=== PATIENT | male | born 1950 | race Caucasian/White ===

== ENCOUNTER 2017-06-27 01:44 | Inpatient (IN) | payer MEDICARE ==
[2017-06-27] MEDS: BUPIVACAINE 0.5%/EPI (SDV) 30 ML INJ
[2017-06-27] MEDS: morphine 4 MG/ML VIAL IV (03:07)
[2017-06-27] MEDS: LACTATED RINGER'S 1,000 ML IV (03:07)
[2017-06-27] MEDS ORDERED: ONDANSETRON (ODT) 4 MG TAB ODT (03:10)
[2017-06-27] MEDS: ONDANSETRON 4 MG INJ IV (03:18)
[2017-06-27 03:57] LABS: ADD MAN DIFF? NO
[2017-06-27 04:07] LABS: WHITE BLOOD COUNT 2.4 10^3/ul (4.8-10.8)
[2017-06-27 04:07] LABS: ABNORMAL IP MESSAGE 1; BASOPHILS % 0.4 % (0.0-2.0); EOSINOPHILS % 0.4 % (0.0-7.0); HEMATOCRIT 40.6 % (42.0-52.0); HEMOGLOBIN 12.2 g/dl (14.0-18.0); LYMPHOCYTES # 0.3 10^3/ul (0.8-2.9); LYMPHOCYTES % 13.6 % (15.0-51.0); MEAN CORPUSCULAR HEMOGLOBIN 22.2 pg (29.0-33.0); MEAN CORPUSCULAR VOLUME 73.8 fl (82.0-101.0); MEAN PLATELET VOLUME 8.9 fl (7.4-10.4); MONOCYTE # 0.1 10^3/ul (0.3-0.9); MONOCYTES % 2.1 % (0.0-11.0); NEUTROPHILS % 83.5 % (39.0-77.0); PLATELET COUNT 608 10^3/UL (140-415); POSITIVE DIFF @See below; RED CELL DISTRIBUTION WIDTH 19.7 % (11.5-14.5)
[2017-06-27] MEDS: HYDROmorphONE 1 MG/5 ML IV SYRINGE IV (04:17)
[2017-06-27 04:40] LABS: ALANINE AMINOTRANSFERASE 13 IU/L (13-69); ALBUMIN 3.6 g/dl (3.3-4.9); ALBUMIN/GLOBULIN RATIO 1.09; ALKALINE PHOSPHATASE 121 IU/L (42-121); ANION GAP 16 (8-16); ASPARTATE AMINO TRANSFERASE 19 IU/L (15-46); BILIRUBIN,INDIRECT 0.4 mg/dl (0-1.1); BILIRUBIN,TOTAL 0.4 mg/dl (0.2-1.3); BLOOD UREA NITROGEN 23 mg/dl (7-20); CALCIUM 8.6 mg/dl (8.4-10.2); CARBON DIOXIDE 30 mmol/L (21-31); CHLORIDE 99 mmol/L (97-110); CREATININE 0.93 mg/dl (0.61-1.24); GLUCOSE 272 mg/dl (70-220); LIPASE 50 U/L (23-300); SODIUM 143 mmol/L (135-144); TOTAL PROTEIN 6.9 g/dl (6.1-8.1)
[2017-06-27 04:47] LABS: POTASSIUM 2.4 mmol/L (3.5-5.1)
[2017-06-27] MEDS: POTASSIUM CHLORIDE 100 ML IVPB ×5 (05:09→14:28)
[2017-06-27] MEDS: PIPER-TAZO 3.375 GM IV (PMX) 100 ML IVPB ×3 (05:41→12:27)
[2017-06-27] MEDS ORDERED: ONDANSETRON 4 MG INJ IV ×2 (06:00→18:30)
[2017-06-27] MEDS ORDERED: ALBUTEROL/IPRATROPIUM (NEB) 3 ML AMP HHN (06:00)
[2017-06-27] MEDS ORDERED: NACL 0.9% 3 ML SYG IV (06:00)
[2017-06-27] MEDS ORDERED: GLUCAGON 1 MG INJ IM (06:30)
[2017-06-27] MEDS ORDERED: GLUCOSE GEL 15 GRAM TUBE PO ×2 (06:30)
[2017-06-27] MEDS ORDERED: GLUCOSE GEL 15 GRAM TUBE BUCCAL (06:30)
[2017-06-27] MEDS ORDERED: DEXTROSE 50% 50 ML SYRINGE IV (06:30)
[2017-06-27] MEDS ORDERED: ROCURONIUM 50 MG INJ ×2 (07:00→15:38)
[2017-06-27] MEDS ORDERED: ETOMIDATE 20 MG INJ (07:00)
[2017-06-27] MEDS: morphine 2 MG INJ IV (07:31)
[2017-06-27] MEDS ORDERED: HYDROmorphONE 1 MG/5 ML IV SYRINGE IV (08:00)
[2017-06-27] MEDS ORDERED: POTASSIUM CHLORIDE 50 ML ×2 (08:21→11:06)
[2017-06-27] MEDS: D5W-0.45 NACL + KCL 20 MEQ 1,000 ML IV ×3 (08:34→22:30)
[2017-06-27] MEDS: FAMOTIDINE 20 MG INJ IV (09:00)
[2017-06-27] MEDS: INSULIN ASPART [NOVOLOG] 3 ML PEN SC ×4 (09:22→21:00)
[2017-06-27 11:36] LABS: POTASSIUM 2.6 mmol/L (3.5-5.1)
[2017-06-27 11:52] LABS: INR 1.12; PROTIME 14.6 Sec (11.9-14.9); PT RATIO 1.1
[2017-06-27] MEDS ORDERED: NORepinephrine 8MG/250 ML (PMX 250 ML (12:06)
[2017-06-27] MEDS: NORepinephrine 8MG/250 ML (PMX 250 ML IV ×2 (12:28→22:00)
[2017-06-27 13:44] LABS: POTASSIUM 3.5 mmol/L (3.5-5.1)
[2017-06-27] MEDS ORDERED: LIDOCAINE 1% (MPF) 30 ML INJ (14:20)
[2017-06-27] MEDS ORDERED: MIDAZOLAM 1 MG/ML 2 ML INJ ×3 (15:10→18:05)
[2017-06-27] MEDS ORDERED: PHENYLephrine (100 MCG/ML) 5ML SYG (15:13)
[2017-06-27] MEDS ORDERED: VASOPRESSIN 20 UNITS INJ (15:22)
[2017-06-27] MEDS: FLUCONAZOLE 400 MG/NS (PMX) 200 ML IVPB (17:30)
[2017-06-27] MEDS ORDERED: LORAZEPAM 2 MG INJ IV (18:30)
[2017-06-27] MEDS ORDERED: METOCLOPRAMIDE 10 MG INJ IV (18:30)
[2017-06-27] MEDS ORDERED: FENTAnyl 50 MCG/ML VIAL IV ×3 (18:30)
[2017-06-27 19:50] LABS: WHITE BLOOD COUNT 6.8 10^3/ul (4.8-10.8)
[2017-06-27 19:50] LABS: ABNORMAL IP MESSAGE 1; HEMATOCRIT 40.7 % (42.0-52.0); HEMOGLOBIN 12.4 g/dl (14.0-18.0); MEAN CORPUSCULAR HEMOGLOBIN 22.3 pg (29.0-33.0); MEAN CORPUSCULAR HGB CONC 30.5 g/dl (32.0-37.0); MEAN CORPUSCULAR VOLUME 73.2 fl (82.0-101.0); MEAN PLATELET VOLUME 9.3 fl (7.4-10.4); PLATELET COUNT 511 10^3/UL (140-415); POSITIVE DIFF @See below; RED BLOOD COUNT 5.56 10^6/ul (4.70-6.10); RED CELL DISTRIBUTION WIDTH 19.9 % (11.5-14.5)
[2017-06-27 19:53] LABS: ADD MAN DIFF? YES
[2017-06-27] MEDS: INSULIN GLARGINE [LANtus] 3 ML PEN SC (20:00)
[2017-06-27 20:23] LABS: ALANINE AMINOTRANSFERASE 40 IU/L (13-69); ALBUMIN 1.7 g/dl (3.3-4.9); ALKALINE PHOSPHATASE 106 IU/L (42-121); ANION GAP 9 (8-16); ASPARTATE AMINO TRANSFERASE 69 IU/L (15-46); BILIRUBIN,INDIRECT 0.5 mg/dl (0-1.1); BILIRUBIN,TOTAL 0.5 mg/dl (0.2-1.3); CARBON DIOXIDE 24 mmol/L (21-31); CHLORIDE 112 mmol/L (97-110); GLUCOSE 103 mg/dl (70-220)
[2017-06-27 20:29] LABS: ANISOCYTOSIS 2+ (0-0); BAND NEUTROPHILS #M 3.1 10^3/ul (0.0-0.6); BAND NEUTROPHILS % (M) 47 % (0-4); GIANT THROMBO% (M) 5 % (0-0); HYPOCHROMASIA 1+ (0-0); LYMPHOCYTES #M 0.8 10^3/ul (0.8-2.9); LYMPHOCYTES % (M) 13 % (15-51); MICROCYTOSIS 2+ (0-0); MONOCYTES % (M) 16 % (0-11); OVALOCYTES 1+ (0-0); PLATELET ESTIMATE NORMAL; POIKILOCYTOSIS 3+ (0-0); POLYCHROMASIA 2+ (0-0); REACTIVE LYMPHOCYTES #M 0.5 10^3/ul (0.0-0.0); REACTIVE LYMPHOCYTES% (M) 8 % (0-0); SEG NEUT #M 1.3 10^3/ul (1.6-7.5); SEGMENTED NEUTROPHILS (M) % 16 % (39-77); SMUDGE%M 2 % (0-0)
[2017-06-27 20:45] LABS: POTASSIUM 4.2 mmol/L (3.5-5.1); SODIUM 141 mmol/L (135-144)
[2017-06-27 20:47] LABS: BLOOD UREA NITROGEN 25 mg/dl (7-20); CALCIUM 7.3 mg/dl (8.4-10.2); CREATININE 1.24 mg/dl (0.61-1.24); TOTAL PROTEIN 3.8 g/dl (6.1-8.1)
[2017-06-27 20:56] LABS: AADO2 Arterial 187.2 mmHg (7.0-24.0); Arterial Blood Gas Oxygen Sat 98.2 mmHG (95.0-98.0); Arterial COHb 0.4 % (0.0-3.0); Arterial Fraction of Oxyhgb 97.4 % (93.0-99.0); Arterial HCO3 17.7 mmol/L (22.0-26.0); Arterial MetHb 0.4 % (0.0-1.5); Arterial Total Hemglobin 13.6 g/dl (12.0-18.0); Arterial pCO2 37.2 mmhg (35-45); MODE VENT - AC; Site A-Line
[2017-06-27] MEDS ORDERED: PROPOFOL 100 ML (21:58)
[2017-06-27] MEDS: PROPOFOL 100 ML IV (22:00)
[2017-06-28] MEDS: INSULIN ASPART [NOVOLOG] 3 ML PEN SC ×6 (01:00→21:00)
[2017-06-28] MEDS: ACCU-CHEK XX (02:00)
[2017-06-28] MEDS: DEXTROSE 50% 50 ML SYRINGE IV (02:30)
[2017-06-28] MEDS: SOD CHLORIDE 0.9% 1,000 ML IV ×5 (02:30→09:01)
[2017-06-28] MEDS: NORepinephrine 8MG/250 ML (PMX 250 ML IV ×2 (03:29→09:12)
[2017-06-28 05:46] LABS: WHITE BLOOD COUNT 17.8 10^3/ul (4.8-10.8)
[2017-06-28 05:46] LABS: ABNORMAL IP MESSAGE 1; HEMATOCRIT 33.6 % (42.0-52.0); HEMOGLOBIN 10.4 g/dl (14.0-18.0); MEAN CORPUSCULAR HEMOGLOBIN 22.3 pg (29.0-33.0); MEAN CORPUSCULAR VOLUME 71.9 fl (82.0-101.0); PLATELET COUNT 380 10^3/UL (140-415); POSITIVE DIFF @See below; RED BLOOD COUNT 4.67 10^6/ul (4.70-6.10)
[2017-06-28 05:58] LABS: ADD MAN DIFF? YES
[2017-06-28] MEDS: PANTOPRAZOLE 40 MG INJ IV (06:00)
[2017-06-28] MEDS: ACETAMINOPHEN 1000MG/100ML IV 100 ML IVPB ×6 (06:00→23:45)
[2017-06-28] MEDS: ALBUMIN HUMAN 25% 100 ML IV ×2 (06:00→22:35)
[2017-06-28] MEDS: PIPER-TAZO 3.375 GM IV (PMX) 100 ML IVPB ×6 (06:01→23:44)
[2017-06-28 06:14] LABS: ALANINE AMINOTRANSFERASE 71 IU/L (13-69); ALBUMIN 1.6 g/dl (3.3-4.9); ALBUMIN/GLOBULIN RATIO 0.76; ALKALINE PHOSPHATASE 89 IU/L (42-121); ANION GAP 11 (8-16); ASPARTATE AMINO TRANSFERASE 127 IU/L (15-46); BILIRUBIN,INDIRECT 0.3 mg/dl (0-1.1); BILIRUBIN,TOTAL 0.3 mg/dl (0.2-1.3); BLOOD UREA NITROGEN 27 mg/dl (7-20); CALCIUM 6.6 mg/dl (8.4-10.2); CARBON DIOXIDE 19 mmol/L (21-31); CHLORIDE 116 mmol/L (97-110); CREATININE 1.63 mg/dl (0.61-1.24); GLUCOSE 98 mg/dl (70-220); IRON < 10 ug/dl (35-150); MAGNESIUM 1.5 mg/dl (1.7-2.5); PHOSPHORUS 3.8 mg/dl (2.5-4.9); POTASSIUM 4.1 mmol/L (3.5-5.1); SODIUM 142 mmol/L (135-144); TOTAL PROTEIN 3.7 g/dl (6.1-8.1)
[2017-06-28 06:19] LABS: TOTAL IRON BINDING CAPACITY 162 ug/dl (241-421)
[2017-06-28] MEDS: D5W-0.45 NACL + KCL 20 MEQ 1,000 ML IV (06:30)
[2017-06-28 07:07] LABS: HEMOGLOBIN A1C 5.2 % (0-5.9)
[2017-06-28 07:37] LABS: ANISOCYTOSIS 1+ (0-0); BAND NEUTROPHILS #M 10.6 10^3/ul (0.0-0.6); BAND NEUTROPHILS % (M) 60 % (0-4); BURR CELLS 2+ (0-0); GIANT THROMBO% (M) 7 % (0-0); LYMPHOCYTES #M 2.1 10^3/ul (0.8-2.9); LYMPHOCYTES % (M) 12 % (15-51); MICROCYTOSIS 1+ (0-0); MONOCYTE #M 0.3 10^3/ul (0.3-0.9); MONOCYTES % (M) 2 % (0-11); PLATELET ESTIMATE NORMAL; POIKILOCYTOSIS 2+ (0-0); SEG NEUT #M 6.5 10^3/ul (1.6-7.5); SEGMENTED NEUTROPHILS (M) % 26 % (39-77); SMUDGE%M 20 % (0-0)
[2017-06-28 08:27] LABS: AADO2 Arterial 107.8 mmHg (7.0-24.0); Arterial Base Excess -9.5 mmol/L (-3.0-3); Arterial Blood Gas Oxygen Sat 98.4 mmHG (95.0-98.0); Arterial COHb 0.3 % (0.0-3.0); Arterial Fraction of Oxyhgb 97.7 % (93.0-99.0); Arterial HCO3 14.7 mmol/L (22.0-26.0); Arterial MetHb 0.4 % (0.0-1.5); Arterial Total Hemglobin 10.5 g/dl (12.0-18.0); Arterial pCO2 26.9 mmhg (35-45); MODE VENT - AC; Site A-Line
[2017-06-28] MEDS: MAGNESIUM SULFATE 2 GM/50 ML 50 ML IVPB (09:01)
[2017-06-28] MEDS: FAMOTIDINE 20 MG INJ IV ×3 (09:01→22:50)
[2017-06-28] MEDS: PROPOFOL 100 ML IV ×3 (10:00→22:00)
[2017-06-28] MEDS: SODIUM BICARBONATE (IV ADD) 100 MEQ in DEXTROSE 5%-0.45% NACL 1,000 ML IV ×2 (13:30→21:48)
[2017-06-28] MEDS: FENTAnyl (DRIP) 1000 mcg/100mL 100 ML IV (16:45)
[2017-06-28] MEDS: FLUCONAZOLE 400 MG/NS (PMX) 200 ML IVPB (18:18)
[2017-06-28] MEDS: INSULIN GLARGINE [LANtus] 3 ML PEN SC (19:56)
[2017-06-28] MEDS: SOD CHLORIDE 0.9% 500 ML IV (20:50)
[2017-06-28] MEDS: FUROSEMIDE 40 MG INJ IV (22:51)
[2017-06-29] MEDS: INSULIN ASPART [NOVOLOG] 3 ML PEN SC ×6 (01:17→20:37)
[2017-06-29] MEDS: NORepinephrine 8MG/250 ML (PMX 250 ML IV ×2 (01:18→02:16)
[2017-06-29] MEDS: ACCU-CHEK XX (02:00)
[2017-06-29] MEDS: PROPOFOL 100 ML IV (03:41)
[2017-06-29] MEDS: SODIUM BICARBONATE (IV ADD) 100 MEQ in DEXTROSE 5%-0.45% NACL 1,000 ML IV (05:58)
[2017-06-29] MEDS: PANTOPRAZOLE 40 MG INJ IV (06:09)
[2017-06-29] MEDS: ACETAMINOPHEN 1000MG/100ML IV 100 ML IVPB ×4 (06:09→23:55)
[2017-06-29] MEDS: PIPER-TAZO 3.375 GM IV (PMX) 100 ML IVPB ×2 (06:09→12:41)
[2017-06-29 06:32] LABS: ABNORMAL IP MESSAGE 1; HEMATOCRIT 25.8 % (42.0-52.0); HEMOGLOBIN 8.2 g/dl (14.0-18.0); MEAN CORPUSCULAR HEMOGLOBIN 22.7 pg (29.0-33.0); MEAN CORPUSCULAR HGB CONC 31.8 g/dl (32.0-37.0); MEAN CORPUSCULAR VOLUME 71.3 fl (82.0-101.0); MEAN PLATELET VOLUME 10.9 fl (7.4-10.4); PLATELET COUNT 196 10^3/UL (140-415); POSITIVE DIFF @See below; RED BLOOD COUNT 3.62 10^6/ul (4.70-6.10); RED CELL DISTRIBUTION WIDTH 19.9 % (11.5-14.5)
[2017-06-29 06:32] LABS: WHITE BLOOD COUNT 16.2 10^3/ul (4.8-10.8)
[2017-06-29 06:33] LABS: ADD MAN DIFF? YES
[2017-06-29 06:56] LABS: URIC ACID 3.7 mg/dl (3.1-7.9)
[2017-06-29 06:56] LABS: CREATINE KINASE 313 IU/L (23-200)
[2017-06-29 06:58] LABS: ANION GAP 15 (8-16); BLOOD UREA NITROGEN 35 mg/dl (7-20); CALCIUM 6.3 mg/dl (8.4-10.2); CARBON DIOXIDE 23 mmol/L (21-31); CHLORIDE 111 mmol/L (97-110); CREATININE 1.81 mg/dl (0.61-1.24); GLUCOSE 150 mg/dl (70-220); MAGNESIUM 2.1 mg/dl (1.7-2.5); PHOSPHORUS 3.2 mg/dl (2.5-4.9); POTASSIUM 3.3 mmol/L (3.5-5.1); SODIUM 146 mmol/L (135-144)
[2017-06-29 07:43] LABS: ANISOCYTOSIS 2+ (0-0); BAND NEUTROPHILS #M 4.2 10^3/ul (0.0-0.6); BAND NEUTROPHILS % (M) 26 % (0-4); BURR CELLS 3+ (0-0); HYPOCHROMASIA 1+ (0-0); LYMPHOCYTES #M 0.4 10^3/ul (0.8-2.9); LYMPHOCYTES % (M) 3 % (15-51); METAMYELOCYTES #M 0.3 10^3/ul (0.0-0.0); METAMYELOCYTES %M 2 % (0-0); MICROCYTOSIS 2+ (0-0); MONOCYTE #M 1.4 10^3/ul (0.3-0.9); MONOCYTES % (M) 9 % (0-11); PLATELET ESTIMATE NORMAL; POIKILOCYTOSIS 3+ (0-0); POLYCHROMASIA 1+ (0-0); SEG NEUT #M 10.4 10^3/ul (1.6-7.5); SEGMENTED NEUTROPHILS (M) % 60 % (39-77); SMUDGE%M 3 % (0-0); TARGET CELLS 1+ (0-0)
[2017-06-29] MEDS: FAMOTIDINE 20 MG INJ IV ×2 (10:05→20:36)
[2017-06-29] MEDS: POTASSIUM CHLORIDE 50 ML IVPB ×2 (10:13→12:03)
[2017-06-29 11:44] LABS: AADO2 Arterial 65.9 mmHg (7.0-24.0); Allen Test ACCEPTAB; Arterial Base Excess -0.6 mmol/L (-3.0-3); Arterial COHb 0.3 % (0.0-3.0); Arterial Fraction of Oxyhgb 97.3 % (93.0-99.0); Arterial HCO3 22.3 mmol/L (22.0-26.0); Arterial MetHb 0.4 % (0.0-1.5); Arterial Total Hemglobin 9.6 g/dl (12.0-18.0); Arterial pCO2 30.4 mmhg (35-45); Blood Gas PS 10; MODE VENT - CPAP; Site Right Brachial
[2017-06-29] MEDS: SOD CHLORIDE 0.9% 1,000 ML IV (12:03)
[2017-06-29 12:25] LABS: SODIUM,URINE RANDOM 49 mmol/L (30-90)
[2017-06-29 12:29] LABS: CREATININE,URINE RANDOM 68.52 mg/dl (20-370); PROTEIN/CREAT RATIO 0.62 RATIO
[2017-06-29] MEDS: morphine 2 MG INJ IV ×2 (13:33→19:44)
[2017-06-29] MEDS: PIPER-TAZO 2.25 GM (PMX) 50 ML IVPB ×2 (17:14→23:56)
[2017-06-29] MEDS: FLUCONAZOLE 200 MG (PMX) 100 ML IVPB (18:45)
[2017-06-29] MEDS: INSULIN GLARGINE [LANtus] 3 ML PEN SC (20:00)
[2017-06-30] MEDS: INSULIN ASPART [NOVOLOG] 3 ML PEN SC ×6 (01:00→20:56)
[2017-06-30] MEDS: ACCU-CHEK XX (02:23)
[2017-06-30] MEDS: morphine 2 MG INJ IV ×2 (04:36→21:15)
[2017-06-30] MEDS: DEXTROSE 50% 50 ML SYRINGE IV (05:44)
[2017-06-30] MEDS: ACETAMINOPHEN 1000MG/100ML IV 100 ML IVPB ×3 (05:52→18:49)
[2017-06-30] MEDS: PIPER-TAZO 2.25 GM (PMX) 50 ML IVPB ×3 (05:52→18:01)
[2017-06-30] MEDS: PANTOPRAZOLE 40 MG INJ IV (05:52)
[2017-06-30 06:17] LABS: WHITE BLOOD COUNT 11.2 10^3/ul (4.8-10.8)
[2017-06-30 06:17] LABS: ABNORMAL IP MESSAGE 1; HEMATOCRIT 29.9 % (42.0-52.0); HEMOGLOBIN 9.4 g/dl (14.0-18.0); MEAN CORPUSCULAR HEMOGLOBIN 22.3 pg (29.0-33.0); MEAN CORPUSCULAR HGB CONC 31.4 g/dl (32.0-37.0); MEAN CORPUSCULAR VOLUME 70.9 fl (82.0-101.0); PLATELET COUNT 125 10^3/UL (140-415); POSITIVE DIFF @See below; RED BLOOD COUNT 4.22 10^6/ul (4.70-6.10); RED CELL DISTRIBUTION WIDTH 19.8 % (11.5-14.5)
[2017-06-30 06:19] LABS: ADD MAN DIFF? YES
[2017-06-30 06:41] LABS: ANION GAP 9 (8-16); BLOOD UREA NITROGEN 31 mg/dl (7-20); CALCIUM 7.4 mg/dl (8.4-10.2); CARBON DIOXIDE 32 mmol/L (21-31); CHLORIDE 109 mmol/L (97-110); CREATININE 1.61 mg/dl (0.61-1.24); GLUCOSE 70 mg/dl (70-220); PHOSPHORUS 3.9 mg/dl (2.5-4.9); POTASSIUM 3.4 mmol/L (3.5-5.1); SODIUM 147 mmol/L (135-144)
[2017-06-30 08:41] LABS: AADO2 Arterial 34.8 mmHg (7.0-24.0); Allen Test ACCEPTAB; Arterial Base Excess 2.2 mmol/L (-3.0-3); Arterial Blood Gas Oxygen Sat 94.9 mmHG (95.0-98.0); Arterial COHb 0.3 % (0.0-3.0); Arterial Fraction of Oxyhgb 94.2 % (93.0-99.0); Arterial HCO3 25.2 mmol/L (22.0-26.0); Arterial MetHb 0.4 % (0.0-1.5); Arterial Total Hemglobin 9.6 g/dl (12.0-18.0); Arterial pCO2 33.1 mmhg (35-45); MODE ROOM AIR; Site LB
[2017-06-30] MEDS: FAMOTIDINE 20 MG INJ IV ×2 (08:56→20:56)
[2017-06-30] MEDS: PROPOFOL 100 ML IV ×2 (08:57→10:00)
[2017-06-30] MEDS: D5W-0.45 NACL + KCL 30 MEQ 1,000 ML IV (08:57)
[2017-06-30 10:19] LABS: ANISOCYTOSIS 2+ (0-0); BAND NEUTROPHILS #M 1.4 10^3/ul (0.0-0.6); BAND NEUTROPHILS % (M) 13 % (0-4); BURR CELLS 2+ (0-0); ELLIPTO 1+ (0-0); ERYTHROBLAST% (NRBC) (M) 1 % (0-0); GIANT THROMBO% (M) 1 % (0-0); HYPOCHROMASIA 1+ (0-0); LYMPHOCYTES #M 1.3 10^3/ul (0.8-2.9); LYMPHOCYTES % (M) 12 % (15-51); MICROCYTOSIS 1+ (0-0); PLATELET ESTIMATE DECREASED; POIKILOCYTOSIS 2+ (0-0); POLYCHROMASIA 1+ (0-0); SEG NEUT #M 8.6 10^3/ul (1.6-7.5); SEGMENTED NEUTROPHILS (M) % 75 % (39-77); SMUDGE%M 10 % (0-0)
[2017-06-30] MEDS: FLUCONAZOLE 200 MG (PMX) 100 ML IVPB (17:06)
[2017-06-30] MEDS: INSULIN GLARGINE [LANtus] 3 ML PEN SC (21:17)
[2017-07-01] MEDS: PIPER-TAZO 2.25 GM (PMX) 50 ML IVPB ×4 (00:01→18:26)
[2017-07-01] MEDS: INSULIN ASPART [NOVOLOG] 3 ML PEN SC ×6 (01:00→20:48)
[2017-07-01] MEDS: ACETAMINOPHEN 1000MG/100ML IV 100 ML IVPB ×4 (01:35→18:26)
[2017-07-01] MEDS: ACCU-CHEK XX (02:00)
[2017-07-01] MEDS: D5W-0.45 NACL + KCL 30 MEQ 1,000 ML IV ×2 (05:39→23:27)
[2017-07-01] MEDS ORDERED: VITAMIN A & D 5 GM OINT PACKET TOP (05:56)
[2017-07-01 06:05] LABS: WHITE BLOOD COUNT 11.4 10^3/ul (4.8-10.8)
[2017-07-01 06:05] LABS: ABNORMAL IP MESSAGE 1; HEMATOCRIT 31.5 % (42.0-52.0); HEMOGLOBIN 9.9 g/dl (14.0-18.0); MEAN CORPUSCULAR HEMOGLOBIN 22.2 pg (29.0-33.0); MEAN CORPUSCULAR HGB CONC 31.4 g/dl (32.0-37.0); MEAN CORPUSCULAR VOLUME 70.8 fl (82.0-101.0); PLATELET COUNT 130 10^3/UL (140-415); POSITIVE DIFF @See below; RED BLOOD COUNT 4.45 10^6/ul (4.70-6.10); RED CELL DISTRIBUTION WIDTH 19.9 % (11.5-14.5)
[2017-07-01 06:10] LABS: ADD MAN DIFF? YES
[2017-07-01] MEDS: PANTOPRAZOLE 40 MG INJ IV (06:29)
[2017-07-01 06:41] LABS: ANION GAP 9 (8-16); BLOOD UREA NITROGEN 25 mg/dl (7-20); CALCIUM 7.8 mg/dl (8.4-10.2); CARBON DIOXIDE 32 mmol/L (21-31); CHLORIDE 109 mmol/L (97-110); CREATININE 1.15 mg/dl (0.61-1.24); GLUCOSE 59 mg/dl (70-220); POTASSIUM 3.3 mmol/L (3.5-5.1); SODIUM 147 mmol/L (135-144)
[2017-07-01] MEDS: FAMOTIDINE 20 MG INJ IV ×2 (08:09→20:48)
[2017-07-01 10:07] LABS: ANISOCYTOSIS 1+ (0-0); BAND NEUTROPHILS #M 0.6 10^3/ul (0.0-0.6); BAND NEUTROPHILS % (M) 6 % (0-4); EOSINOPHILS % (M) 1 % (0-7); GIANT THROMBO% (M) 1 % (0-0); LYMPHOCYTES #M 3.3 10^3/ul (0.8-2.9); LYMPHOCYTES % (M) 29 % (15-51); MICROCYTOSIS 1+ (0-0); OVALOCYTES 1+ (0-0); PLATELET ESTIMATE DECREASED; POIKILOCYTOSIS 2+ (0-0); POLYCHROMASIA 1+ (0-0); REACTIVE LYMPHOCYTES #M 0.3 10^3/ul (0.0-0.0); REACTIVE LYMPHOCYTES% (M) 3 % (0-0); SEGMENTED NEUTROPHILS (M) % 61 % (39-77); SMUDGE%M 3 % (0-0)
[2017-07-01] MEDS: morphine 2 MG INJ IV ×4 (10:27→20:13)
[2017-07-01] MEDS: DEXTROSE 50% 50 ML SYRINGE IV (13:24)
[2017-07-01 15:29] LABS: CARCINOEMBRYONIC ANTIGEN 12.6 ng/ml (0.0-5.0)
[2017-07-01] MEDS: FLUCONAZOLE 200 MG (PMX) 100 ML IVPB (18:26)
[2017-07-01] MEDS: INSULIN GLARGINE [LANtus] 3 ML PEN SC (20:00)
[2017-07-01] MEDS: POTASSIUM CHLORIDE 100 ML IVPB (20:13)
[2017-07-02] MEDS: PIPER-TAZO 2.25 GM (PMX) 50 ML IVPB ×5 (00:15→23:27)
[2017-07-02] MEDS: morphine 2 MG INJ IV ×5 (00:15→20:42)
[2017-07-02] MEDS: INSULIN ASPART [NOVOLOG] 3 ML PEN SC ×4 (01:00→13:00)
[2017-07-02] MEDS: ACETAMINOPHEN 1000MG/100ML IV 100 ML IVPB ×5 (01:08→23:03)
[2017-07-02] MEDS: ACCU-CHEK XX (02:00)
[2017-07-02 05:53] LABS: WHITE BLOOD COUNT 7.6 10^3/ul (4.8-10.8)
[2017-07-02 05:53] LABS: ABNORMAL IP MESSAGE 1; HEMATOCRIT 30.5 % (42.0-52.0); HEMOGLOBIN 9.6 g/dl (14.0-18.0); MEAN CORPUSCULAR HEMOGLOBIN 22.2 pg (29.0-33.0); MEAN CORPUSCULAR HGB CONC 31.5 g/dl (32.0-37.0); MEAN CORPUSCULAR VOLUME 70.6 fl (82.0-101.0); PLATELET COUNT 132 10^3/UL (140-415); POSITIVE DIFF @See below; RED BLOOD COUNT 4.32 10^6/ul (4.70-6.10); RED CELL DISTRIBUTION WIDTH 19.8 % (11.5-14.5)
[2017-07-02] MEDS: PANTOPRAZOLE 40 MG INJ IV (06:01)
[2017-07-02 06:32] LABS: ADD MAN DIFF? YES
[2017-07-02 06:34] LABS: ANION GAP 15 (8-16); BLOOD UREA NITROGEN 24 mg/dl (7-20); CALCIUM 7.6 mg/dl (8.4-10.2); CARBON DIOXIDE 27 mmol/L (21-31); CHLORIDE 109 mmol/L (97-110); CREATININE 0.94 mg/dl (0.61-1.24); GLUCOSE 94 mg/dl (70-220); MAGNESIUM 1.8 mg/dl (1.7-2.5); POTASSIUM 4.6 mmol/L (3.5-5.1); SODIUM 146 mmol/L (135-144)
[2017-07-02] MEDS: FAMOTIDINE 20 MG INJ IV ×2 (08:20→20:41)
[2017-07-02] MEDS: SOD CHLORIDE 0.9% 100 ML (10:51)
[2017-07-02] MEDS: IODIXANOL LOCM 100 ML BTL (10:51)
[2017-07-02 11:29] LABS: ANISOCYTOSIS 1+ (0-0); BAND NEUTROPHILS % (M) 1 % (0-4); EOSINOPHILS % (M) 1 % (0-7); HYPOCHROMASIA 3+ (0-0); LYMPHOCYTES #M 2.3 10^3/ul (0.8-2.9); LYMPHOCYTES % (M) 31 % (15-51); MICROCYTOSIS 1+ (0-0); MONOCYTE #M 0.3 10^3/ul (0.3-0.9); MONOCYTES % (M) 5 % (0-11); OVALOCYTES 1+ (0-0); PLATELET ESTIMATE DECREASED; POIKILOCYTOSIS 3+ (0-0); POLYCHROMASIA 3+ (0-0); SEG NEUT #M 4.7 10^3/ul (1.6-7.5); SEGMENTED NEUTROPHILS (M) % 62 % (39-77); SMUDGE%M 5 % (0-0)
[2017-07-02 12:23] LABS: IRON 16 ug/dl (35-150)
[2017-07-02 12:32] LABS: % IRON SATURATION 10 % SAT (22-52); TOTAL IRON BINDING CAPACITY 158 ug/dl (241-421)
[2017-07-02] MEDS: D5W-0.45 NACL + KCL 30 MEQ 1,000 ML IV ×2 (13:01→15:23)
[2017-07-02] MEDS: FLUCONAZOLE 200 MG (PMX) 100 ML IVPB (17:55)
[2017-07-03] MEDS: morphine 2 MG INJ IV ×4 (03:03→10:57)
[2017-07-03] MEDS: PANTOPRAZOLE 40 MG INJ IV (05:25)
[2017-07-03] MEDS: ACETAMINOPHEN 1000MG/100ML IV 100 ML IVPB ×3 (05:30→17:18)
[2017-07-03] MEDS: PIPER-TAZO 2.25 GM (PMX) 50 ML IVPB ×3 (05:48→18:48)
[2017-07-03 06:12] LABS: ADD MAN DIFF? NO
[2017-07-03 06:21] LABS: ABNORMAL IP MESSAGE 1; BASOPHILS % 0.2 % (0.0-2.0); EOSINOPHILS # 0.1 10^3/ul (0.0-0.5); EOSINOPHILS % 1.2 % (0.0-7.0); HEMOGLOBIN 8.8 g/dl (14.0-18.0); LYMPHOCYTES % 11.1 % (15.0-51.0); MEAN CORPUSCULAR HEMOGLOBIN 22.8 pg (29.0-33.0); MEAN CORPUSCULAR HGB CONC 31.4 g/dl (32.0-37.0); MEAN CORPUSCULAR VOLUME 72.5 fl (82.0-101.0); MEAN PLATELET VOLUME 9.9 fl (7.4-10.4); MONOCYTE # 0.7 10^3/ul (0.3-0.9); MONOCYTES % 7.5 % (0.0-11.0); NEUTROPHIL # 6.8 10^3/ul (1.6-7.5); NEUTROPHILS % 76.3 % (39.0-77.0); PLATELET COUNT 153 10^3/UL (140-415); POSITIVE DIFF @See below; RED BLOOD COUNT 3.86 10^6/ul (4.70-6.10); RED CELL DISTRIBUTION WIDTH 19.8 % (11.5-14.5)
[2017-07-03 07:35] LABS: ANION GAP 13 (8-16)
[2017-07-03 07:37] LABS: BLOOD UREA NITROGEN 27 mg/dl (7-20); CALCIUM 7.6 mg/dl (8.4-10.2); CARBON DIOXIDE 25 mmol/L (21-31); CHLORIDE 112 mmol/L (97-110); CREATININE 1.05 mg/dl (0.61-1.24); GLUCOSE 89 mg/dl (70-220); POTASSIUM 4.5 mmol/L (3.5-5.1); SODIUM 145 mmol/L (135-144)
[2017-07-03 07:41] LABS: ANISOCYTOSIS 1+ (0-0); BAND NEUTROPHILS % (M) 1 % (0-4); HYPOCHROMASIA 2+ (0-0); LYMPHOCYTES #M 1.4 10^3/ul (0.8-2.9); LYMPHOCYTES % (M) 16 % (15-51); MICROCYTOSIS 1+ (0-0); MONOCYTE #M 0.5 10^3/ul (0.3-0.9); MONOCYTES % (M) 6 % (0-11); PLATELET ESTIMATE NORMAL; POIKILOCYTOSIS 3+ (0-0); POLYCHROMASIA 3+ (0-0); SEG NEUT #M 6.9 10^3/ul (1.6-7.5); SEGMENTED NEUTROPHILS (M) % 77 % (39-77); SMUDGE%M 8 % (0-0)
[2017-07-03] MEDS: FAMOTIDINE 20 MG INJ IV ×2 (08:28→19:42)
[2017-07-03] MEDS: morphine LIQ (10 MG/5 ML) CUP PO ×3 (14:31→19:42)
[2017-07-03] MEDS: SOD FERRIC GLUC COMPLX 125 MG in SOD CHLORIDE 0.9% 100 ML IVPB (16:19)
[2017-07-03] MEDS: FLUCONAZOLE 200 MG (PMX) 100 ML IVPB (17:18)
[2017-07-03] MEDS ORDERED: VITAMIN A & D 5 GM OINT PACKET TOP (18:58)
[2017-07-04] MEDS: ACETAMINOPHEN 1000MG/100ML IV 100 ML IVPB ×4 (00:08→17:56)
[2017-07-04] MEDS: PIPER-TAZO 2.25 GM (PMX) 50 ML IVPB ×3 (00:43→11:34)
[2017-07-04] MEDS: morphine LIQ (10 MG/5 ML) CUP PO ×5 (02:06→21:27)
[2017-07-04] MEDS: PANTOPRAZOLE 40 MG INJ IV (05:14)
[2017-07-04] MEDS: FAMOTIDINE 20 MG INJ IV ×2 (08:37→21:27)
[2017-07-04] MEDS: POTASSIUM CHLORIDE 10 MEQ in DEXTROSE 5% 1,000 ML IV (11:26)
[2017-07-04 14:04] LABS: ADD MAN DIFF? NO
[2017-07-04 14:09] LABS: BASOPHILS % 0.1 % (0.0-2.0); EOSINOPHILS # 0.1 10^3/ul (0.0-0.5); EOSINOPHILS % 0.8 % (0.0-7.0); HEMATOCRIT 25.3 % (42.0-52.0); HEMOGLOBIN 7.7 g/dl (14.0-18.0); LYMPHOCYTES % 7.9 % (15.0-51.0); MEAN CORPUSCULAR HEMOGLOBIN 22.2 pg (29.0-33.0); MEAN CORPUSCULAR HGB CONC 30.4 g/dl (32.0-37.0); MEAN CORPUSCULAR VOLUME 72.9 fl (82.0-101.0); MEAN PLATELET VOLUME 9.7 fl (7.4-10.4); MONOCYTE # 0.8 10^3/ul (0.3-0.9); MONOCYTES % 6.7 % (0.0-11.0); NEUTROPHIL # 9.9 10^3/ul (1.6-7.5); NEUTROPHILS % 82.6 % (39.0-77.0); PLATELET COUNT 294 10^3/UL (140-415); POSITIVE DIFF @See below; RED BLOOD COUNT 3.47 10^6/ul (4.70-6.10); RED CELL DISTRIBUTION WIDTH 19.5 % (11.5-14.5)
[2017-07-04 14:31] LABS: ANION GAP 15 (8-16); BLOOD UREA NITROGEN 22 mg/dl (7-20); CALCIUM 7.3 mg/dl (8.4-10.2); CARBON DIOXIDE 22 mmol/L (21-31); CHLORIDE 109 mmol/L (97-110); CREATININE 0.89 mg/dl (0.61-1.24); GLUCOSE 108 mg/dl (70-220); POTASSIUM 3.7 mmol/L (3.5-5.1); SODIUM 142 mmol/L (135-144)
[2017-07-04] MEDS: SOD FERRIC GLUC COMPLX 125 MG in SOD CHLORIDE 0.9% 100 ML IVPB (17:03)
[2017-07-04] MEDS: BALSAM PERU/CASTOR OIL 60 GM TUBE TOP (21:28)
[2017-07-05] MEDS: ACETAMINOPHEN 1000MG/100ML IV 100 ML IVPB ×2 (00:42→05:51)
[2017-07-05] MEDS: POTASSIUM CHLORIDE 10 MEQ in DEXTROSE 5% 1,000 ML IV (02:14)
[2017-07-05] MEDS: PANTOPRAZOLE 40 MG INJ IV (05:51)
[2017-07-05] MEDS: FAMOTIDINE 20 MG INJ IV (08:53)
[2017-07-05] MEDS: morphine LIQ (10 MG/5 ML) CUP PO ×4 (08:54→21:16)
[2017-07-05] MEDS: BALSAM PERU/CASTOR OIL 60 GM TUBE TOP ×2 (08:55→21:16)
[2017-07-05] MEDS: SOD FERRIC GLUC COMPLX 125 MG in SOD CHLORIDE 0.9% 100 ML IVPB (17:15)
[2017-07-05] MEDS: FUROSEMIDE 20 MG INJ IV (17:15)
[2017-07-05 20:01] LABS: ADD UMIC YES; UR ASCORBIC ACID NEGATIVE (NEGATIVE); UR BACTERIA FEW /HPF (NONE SEEN); UR BILIRUBIN (Dip) NEGATIVE (NEGATIVE); UR BLOOD (Dip) 2+ mg/dL (NEGATIVE); UR CLARITY CLEAR (CLEAR); UR COLOR YELLOW (YELLOW); UR GLUCOSE (Dip) NEGATIVE (NEGATIVE); UR KETONES (Dip) NEGATIVE (NEGATIVE); UR LEUKOCYTE ESTERASE (Dip) NEGATIVE Leu/ul (NEGATIVE); UR NITRITE (Dip) NEGATIVE (NEGATIVE); UR RBC 3 /HPF (0-5); UR SPECIFIC GRAVITY (Dip) 1.011 (1.003-1.030); UR TOTAL PROTEIN (Dip) NEGATIVE (NEGATIVE); UR UROBILINOGEN (Dip) NEGATIVE (NEGATIVE); UR WBC 1 /HPF (0-5)
[2017-07-06] MEDS: morphine LIQ (10 MG/5 ML) CUP PO ×5 (00:47→21:14)
[2017-07-06 05:46] LABS: ADD MAN DIFF? NO
[2017-07-06 05:50] LABS: WHITE BLOOD COUNT 18.9 10^3/ul (4.8-10.8)
[2017-07-06 05:50] LABS: ABNORMAL IP MESSAGE 1; BASOPHILS % 0.2 % (0.0-2.0); EOSINOPHILS # 0.1 10^3/ul (0.0-0.5); EOSINOPHILS % 0.4 % (0.0-7.0); HEMATOCRIT 22.6 % (42.0-52.0); HEMOGLOBIN 7.1 g/dl (14.0-18.0); LYMPHOCYTES # 1.2 10^3/ul (0.8-2.9); LYMPHOCYTES % 6.1 % (15.0-51.0); MEAN CORPUSCULAR HEMOGLOBIN 22.8 pg (29.0-33.0); MEAN CORPUSCULAR HGB CONC 31.4 g/dl (32.0-37.0); MEAN CORPUSCULAR VOLUME 72.4 fl (82.0-101.0); MEAN PLATELET VOLUME 9.8 fl (7.4-10.4); MONOCYTE # 1.6 10^3/ul (0.3-0.9); MONOCYTES % 8.4 % (0.0-11.0); NEUTROPHIL # 15.6 10^3/ul (1.6-7.5); NEUTROPHILS % 82.5 % (39.0-77.0); PLATELET COUNT 452 10^3/UL (140-415); POSITIVE DIFF @See below; RED BLOOD COUNT 3.12 10^6/ul (4.70-6.10); RED CELL DISTRIBUTION WIDTH 19.1 % (11.5-14.5)
[2017-07-06 06:25] LABS: ALANINE AMINOTRANSFERASE 30 IU/L (13-69); ALBUMIN 2.1 g/dl (3.3-4.9); ALKALINE PHOSPHATASE 275 IU/L (42-121); ANION GAP 11 (8-16); ASPARTATE AMINO TRANSFERASE 23 IU/L (15-46); BILIRUBIN,INDIRECT 0.3 mg/dl (0-1.1); BILIRUBIN,TOTAL 0.3 mg/dl (0.2-1.3); BLOOD UREA NITROGEN 13 mg/dl (7-20); CALCIUM 7.4 mg/dl (8.4-10.2); CARBON DIOXIDE 28 mmol/L (21-31); CHLORIDE 105 mmol/L (97-110); CREATININE 0.69 mg/dl (0.61-1.24); GLUCOSE 88 mg/dl (70-220); POTASSIUM 4.5 mmol/L (3.5-5.1); SODIUM 139 mmol/L (135-144); TOTAL PROTEIN 4.7 g/dl (6.1-8.1)
[2017-07-06] MEDS ORDERED: HEPARIN 1000 UNITS/ML 10 ML INJ IV ×4 (09:30→16:30)
[2017-07-06] MEDS ORDERED: HEPARIN 25000 UNITS/250 ML 250 ML IV (09:30)
[2017-07-06] MEDS ORDERED: VANCOMYCIN IV PER PHARMACY XX (09:30)
[2017-07-06 10:23] LABS: ADD MAN DIFF? NO
[2017-07-06 10:25] LABS: WHITE BLOOD COUNT 20.6 10^3/ul (4.8-10.8)
[2017-07-06 10:25] LABS: ABNORMAL IP MESSAGE 1; BASOPHILS % 0.1 % (0.0-2.0); EOSINOPHILS # 0.1 10^3/ul (0.0-0.5); EOSINOPHILS % 0.3 % (0.0-7.0); HEMATOCRIT 24.4 % (42.0-52.0); HEMOGLOBIN 7.6 g/dl (14.0-18.0); LYMPHOCYTES # 1.2 10^3/ul (0.8-2.9); LYMPHOCYTES % 5.6 % (15.0-51.0); MEAN CORPUSCULAR HEMOGLOBIN 22.7 pg (29.0-33.0); MEAN CORPUSCULAR HGB CONC 31.1 g/dl (32.0-37.0); MEAN CORPUSCULAR VOLUME 72.8 fl (82.0-101.0); MEAN PLATELET VOLUME 9.4 fl (7.4-10.4); MONOCYTE # 1.7 10^3/ul (0.3-0.9); MONOCYTES % 8.3 % (0.0-11.0); NEUTROPHIL # 17.3 10^3/ul (1.6-7.5); NEUTROPHILS % 83.9 % (39.0-77.0); PLATELET COUNT 509 10^3/UL (140-415); POSITIVE DIFF @See below; RED BLOOD COUNT 3.35 10^6/ul (4.70-6.10); RED CELL DISTRIBUTION WIDTH 18.8 % (11.5-14.5)
[2017-07-06] MEDS: BALSAM PERU/CASTOR OIL 60 GM TUBE TOP ×2 (10:35→20:18)
[2017-07-06] MEDS: MEROPENEM 1 GM/50ML(PMX) 50 ML IVPB ×3 (10:35→21:13)
[2017-07-06] MEDS: ONDANSETRON 4 MG INJ IV (11:11)
[2017-07-06 11:28] LABS: INR 0.99; PARTIAL THROMBOPLASTIN TIME 45.2 Sec (25.0-35.0); PROTIME 13.2 Sec (11.9-14.9)
[2017-07-06] MEDS: VANCOMYCIN 1.25 GM in SOD CHLORIDE 0.9% 250 ML IVPB (11:34)
[2017-07-06] MEDS: IOHEXOL 100 ML (12:38)
[2017-07-06] MEDS: SOD CHLORIDE 0.9% 100 ML (12:39)
[2017-07-06 16:16] LABS: IMMEDIATE SPIN CROSSMATCH 1 2
[2017-07-06] MEDS: SOD FERRIC GLUC COMPLX 125 MG in SOD CHLORIDE 0.9% 100 ML IVPB (17:20)
[2017-07-06] MEDS: HEPARIN 1000 UNITS/ML 10 ML INJ IV (19:04)
[2017-07-06] MEDS: HEPARIN 25000 UNITS/250 ML 250 ML IV (20:18)
[2017-07-06] MEDS: VANCOMYCIN 750 MG in DEXTROSE 5% 150 ML IVPB (22:34)
[2017-07-07] MEDS: morphine LIQ (10 MG/5 ML) CUP PO ×5 (00:18→20:56)
[2017-07-07 03:21] LABS: ADD MAN DIFF? NO
[2017-07-07 03:25] LABS: ABNORMAL IP MESSAGE 1; BASOPHILS % 0.2 % (0.0-2.0); EOSINOPHILS # 0.1 10^3/ul (0.0-0.5); EOSINOPHILS % 0.4 % (0.0-7.0); HEMATOCRIT 31.3 % (42.0-52.0); HEMOGLOBIN 10.4 g/dl (14.0-18.0); LYMPHOCYTES # 1.1 10^3/ul (0.8-2.9); LYMPHOCYTES % 5.6 % (15.0-51.0); MEAN CORPUSCULAR HEMOGLOBIN 24.9 pg (29.0-33.0); MEAN CORPUSCULAR HGB CONC 33.2 g/dl (32.0-37.0); MEAN CORPUSCULAR VOLUME 75.1 fl (82.0-101.0); MEAN PLATELET VOLUME 9.2 fl (7.4-10.4); MONOCYTE # 1.7 10^3/ul (0.3-0.9); MONOCYTES % 8.8 % (0.0-11.0); NEUTROPHIL # 16.2 10^3/ul (1.6-7.5); NEUTROPHILS % 82.8 % (39.0-77.0); PLATELET COUNT 534 10^3/UL (140-415); POSITIVE DIFF @See below; RED BLOOD COUNT 4.17 10^6/ul (4.70-6.10); RED CELL DISTRIBUTION WIDTH 19.3 % (11.5-14.5)
[2017-07-07 03:25] LABS: WHITE BLOOD COUNT 19.5 10^3/ul (4.8-10.8)
[2017-07-07 03:57] LABS: ALANINE AMINOTRANSFERASE 33 IU/L (13-69); ALBUMIN 2.3 g/dl (3.3-4.9); ALBUMIN/GLOBULIN RATIO 0.82; ALKALINE PHOSPHATASE 307 IU/L (42-121); ANION GAP 13 (8-16); ASPARTATE AMINO TRANSFERASE 31 IU/L (15-46); BILIRUBIN,INDIRECT 0.5 mg/dl (0-1.1); BILIRUBIN,TOTAL 0.5 mg/dl (0.2-1.3); BLOOD UREA NITROGEN 12 mg/dl (7-20); CALCIUM 7.4 mg/dl (8.4-10.2); CARBON DIOXIDE 26 mmol/L (21-31); CHLORIDE 103 mmol/L (97-110); CREATININE 0.65 mg/dl (0.61-1.24); GLUCOSE 95 mg/dl (70-220); POTASSIUM 4.3 mmol/L (3.5-5.1); SODIUM 138 mmol/L (135-144); TOTAL PROTEIN 5.1 g/dl (6.1-8.1)
[2017-07-07] MEDS: MEROPENEM 1 GM/50ML(PMX) 50 ML IVPB ×3 (05:24→21:00)
[2017-07-07] MEDS: BALSAM PERU/CASTOR OIL 60 GM TUBE TOP ×2 (10:23→20:47)
[2017-07-07 10:24] LABS: PARTIAL THROMBOPLASTIN TIME 38.3 Sec (25.0-35.0)
[2017-07-07] MEDS: MIDAZOLAM 1 MG/ML 2 ML INJ (11:30)
[2017-07-07] MEDS: FENTAnyl 50 MCG/ML VIAL (11:31)
[2017-07-07] MEDS: LIDOCAINE 1% (MDV) 10 ML INJ (11:35)
[2017-07-07] MEDS: VANCOMYCIN 750 MG in DEXTROSE 5% 150 ML IVPB ×2 (12:34→23:30)
[2017-07-07 13:55] LABS: PARTIAL THROMBOPLASTIN TIME 36.7 Sec (25.0-35.0)
[2017-07-07] MEDS: HEPARIN 25000 UNITS/250 ML 250 ML IV (14:49)
[2017-07-07] MEDS: HEPARIN 1000 UNITS/ML 10 ML INJ IV (14:52)
[2017-07-07] MEDS: SOD FERRIC GLUC COMPLX 125 MG in SOD CHLORIDE 0.9% 100 ML IVPB (17:39)
[2017-07-07 23:13] LABS: PARTIAL THROMBOPLASTIN TIME 116.5 Sec (25.0-35.0)
[2017-07-07 23:22] LABS: VANCOMYCIN,TROUGH 8.2 ug/ml (10.0-20.0)
[2017-07-08] MEDS: morphine LIQ (10 MG/5 ML) CUP PO ×6 (02:02→21:58)
[2017-07-08] MEDS: MEROPENEM 1 GM/50ML(PMX) 50 ML IVPB ×3 (05:42→21:43)
[2017-07-08 07:05] LABS: PARTIAL THROMBOPLASTIN TIME 55.8 Sec (25.0-35.0)
[2017-07-08] MEDS: HEPARIN 25000 UNITS/250 ML 250 ML IV ×2 (08:30→08:39)
[2017-07-08] MEDS ORDERED: HEPARIN 1000 UNITS/ML 10 ML INJ IV ×2 (08:30)
[2017-07-08] MEDS: VANCOMYCIN 750 MG in DEXTROSE 5% 150 ML IVPB ×2 (08:35→16:20)
[2017-07-08] MEDS: BALSAM PERU/CASTOR OIL 60 GM TUBE TOP ×2 (08:35→21:47)
[2017-07-08] MEDS: ENOXAPARIN 100 MG/ML SYG SC ×2 (13:35→21:47)
[2017-07-08 15:00] LABS: ADD MAN DIFF? NO
[2017-07-08 15:03] LABS: WHITE BLOOD COUNT 14.4 10^3/ul (4.8-10.8)
[2017-07-08 15:03] LABS: ABNORMAL IP MESSAGE 1; BASOPHILS % 0.2 % (0.0-2.0); EOSINOPHILS # 0.1 10^3/ul (0.0-0.5); EOSINOPHILS % 0.3 % (0.0-7.0); HEMATOCRIT 30.8 % (42.0-52.0); HEMOGLOBIN 9.9 g/dl (14.0-18.0); LYMPHOCYTES # 0.9 10^3/ul (0.8-2.9); LYMPHOCYTES % 6.5 % (15.0-51.0); MEAN CORPUSCULAR HEMOGLOBIN 24.8 pg (29.0-33.0); MEAN CORPUSCULAR HGB CONC 32.1 g/dl (32.0-37.0); MEAN PLATELET VOLUME 8.9 fl (7.4-10.4); MONOCYTE # 1.5 10^3/ul (0.3-0.9); MONOCYTES % 10.7 % (0.0-11.0); NEUTROPHIL # 11.5 10^3/ul (1.6-7.5); NEUTROPHILS % 80.2 % (39.0-77.0); PLATELET COUNT 647 10^3/UL (140-415); POSITIVE DIFF @See below
[2017-07-09] MEDS: VANCOMYCIN 750 MG in DEXTROSE 5% 150 ML IVPB ×2 (00:20→09:34)
[2017-07-09] MEDS: morphine LIQ (10 MG/5 ML) CUP PO ×4 (00:21→20:31)
[2017-07-09] MEDS: MEROPENEM 1 GM/50ML(PMX) 50 ML IVPB ×3 (05:43→21:51)
[2017-07-09 08:39] LABS: ADD MAN DIFF? NO
[2017-07-09 08:44] LABS: WHITE BLOOD COUNT 13.3 10^3/ul (4.8-10.8)
[2017-07-09 08:44] LABS: BASOPHILS % 0.2 % (0.0-2.0); EOSINOPHILS % 0.2 % (0.0-7.0); HEMATOCRIT 30.6 % (42.0-52.0); HEMOGLOBIN 9.9 g/dl (14.0-18.0); LYMPHOCYTES # 0.8 10^3/ul (0.8-2.9); LYMPHOCYTES % 6.1 % (15.0-51.0); MEAN CORPUSCULAR HEMOGLOBIN 25.3 pg (29.0-33.0); MEAN CORPUSCULAR HGB CONC 32.4 g/dl (32.0-37.0); MEAN CORPUSCULAR VOLUME 78.1 fl (82.0-101.0); MONOCYTE # 1.4 10^3/ul (0.3-0.9); MONOCYTES % 10.4 % (0.0-11.0); NEUTROPHIL # 10.7 10^3/ul (1.6-7.5); NEUTROPHILS % 80.9 % (39.0-77.0); RED BLOOD COUNT 3.92 10^6/ul (4.70-6.10); RED CELL DISTRIBUTION WIDTH 20.3 % (11.5-14.5)
[2017-07-09 08:56] LABS: PLATELET COUNT 673 10^3/UL (140-415)
[2017-07-09 09:02] LABS: ANION GAP 10 (8-16); BLOOD UREA NITROGEN 9 mg/dl (7-20); CALCIUM 7.4 mg/dl (8.4-10.2); CARBON DIOXIDE 29 mmol/L (21-31); CHLORIDE 101 mmol/L (97-110); CREATININE 0.64 mg/dl (0.61-1.24); GLUCOSE 90 mg/dl (70-220); POTASSIUM 3.3 mmol/L (3.5-5.1); SODIUM 137 mmol/L (135-144)
[2017-07-09 09:07] LABS: VANCOMYCIN,TROUGH 16.5 ug/ml (10.0-20.0)
[2017-07-09] MEDS: ENOXAPARIN 100 MG/ML SYG SC ×2 (09:11→20:34)
[2017-07-09] MEDS: BALSAM PERU/CASTOR OIL 60 GM TUBE TOP ×2 (09:12→20:34)
[2017-07-09] MEDS: POTASSIUM CHLORIDE (SR) 20 MEQ TAB PO (12:48)
[2017-07-09] MEDS ORDERED: VANCOMYCIN 500MG/NS (PMX) 100 ML IVPB (17:00)
[2017-07-10 01:14] LABS: LACTIC ACID 0.8 mmol/L (0.5-2.0)
[2017-07-10 04:00] LABS: LACTIC ACID 0.8 mmol/L (0.5-2.0)
[2017-07-10] MEDS: MEROPENEM 1 GM/50ML(PMX) 50 ML IVPB ×3 (05:43→21:02)
[2017-07-10] MEDS: morphine LIQ (10 MG/5 ML) CUP PO ×4 (06:07→20:45)
[2017-07-10] MEDS: BALSAM PERU/CASTOR OIL 60 GM TUBE TOP ×2 (09:42→20:46)
[2017-07-10] MEDS: ENOXAPARIN 100 MG/ML SYG SC ×2 (09:44→20:50)
[2017-07-10] MEDS ORDERED: VITAMIN A & D 5 GM OINT PACKET TOP (09:56)
[2017-07-11] MEDS: morphine LIQ (10 MG/5 ML) CUP PO ×6 (02:12→21:09)
[2017-07-11] MEDS: MEROPENEM 1 GM/50ML(PMX) 50 ML IVPB ×3 (05:32→21:08)
[2017-07-11 05:49] LABS: ADD MAN DIFF? NO
[2017-07-11 05:55] LABS: BASOPHILS % 0.4 % (0.0-2.0); EOSINOPHILS # 0.1 10^3/ul (0.0-0.5); EOSINOPHILS % 0.8 % (0.0-7.0); HEMATOCRIT 28.4 % (42.0-52.0); LYMPHOCYTES # 0.7 10^3/ul (0.8-2.9); MEAN CORPUSCULAR HEMOGLOBIN 25.4 pg (29.0-33.0); MEAN CORPUSCULAR HGB CONC 31.7 g/dl (32.0-37.0); MONOCYTE # 1.2 10^3/ul (0.3-0.9); MONOCYTES % 11.8 % (0.0-11.0); NEUTROPHIL # 7.9 10^3/ul (1.6-7.5); NEUTROPHILS % 78.5 % (39.0-77.0); PLATELET COUNT 695 10^3/UL (140-415); RED BLOOD COUNT 3.55 10^6/ul (4.70-6.10); RED CELL DISTRIBUTION WIDTH 20.3 % (11.5-14.5)
[2017-07-11 06:13] LABS: INR 1.05; PROTIME 13.8 Sec (11.9-14.9); PT RATIO 1.1
[2017-07-11 06:14] LABS: PARTIAL THROMBOPLASTIN TIME 46.9 Sec (25.0-35.0)
[2017-07-11 06:16] LABS: ALANINE AMINOTRANSFERASE 29 IU/L (13-69); ALBUMIN/GLOBULIN RATIO 0.74; ALKALINE PHOSPHATASE 205 IU/L (42-121); ANION GAP 6 (8-16); ASPARTATE AMINO TRANSFERASE 33 IU/L (15-46); BILIRUBIN,INDIRECT 0.3 mg/dl (0-1.1); BILIRUBIN,TOTAL 0.3 mg/dl (0.2-1.3); BLOOD UREA NITROGEN 10 mg/dl (7-20); CALCIUM 7.6 mg/dl (8.4-10.2); CARBON DIOXIDE 35 mmol/L (21-31); CHLORIDE 102 mmol/L (97-110); CREATININE 0.58 mg/dl (0.61-1.24); GLUCOSE 95 mg/dl (70-220); POTASSIUM 4.4 mmol/L (3.5-5.1); SODIUM 139 mmol/L (135-144); TOTAL PROTEIN 4.7 g/dl (6.1-8.1)
[2017-07-11 06:19] LABS: MAGNESIUM 1.8 mg/dl (1.7-2.5)
[2017-07-11 06:19] LABS: PHOSPHORUS 2.8 mg/dl (2.5-4.9)
[2017-07-11] MEDS: BALSAM PERU/CASTOR OIL 60 GM TUBE TOP ×2 (10:29→21:14)
[2017-07-11] MEDS: ENOXAPARIN 100 MG/ML SYG SC ×2 (10:30→21:12)
[2017-07-12] MEDS: MEROPENEM 1 GM/50ML(PMX) 50 ML IVPB ×3 (05:33→21:28)
[2017-07-12] MEDS: morphine LIQ (10 MG/5 ML) CUP PO ×4 (05:34→19:58)
[2017-07-12 06:09] LABS: ADD MAN DIFF? NO
[2017-07-12 06:10] LABS: BASOPHIL # 0.1 10^3/ul (0.0-0.1); BASOPHILS % 0.7 % (0.0-2.0); EOSINOPHILS # 0.1 10^3/ul (0.0-0.5); EOSINOPHILS % 1.2 % (0.0-7.0); HEMATOCRIT 29.8 % (42.0-52.0); HEMOGLOBIN 9.3 g/dl (14.0-18.0); LYMPHOCYTES # 0.9 10^3/ul (0.8-2.9); LYMPHOCYTES % 9.5 % (15.0-51.0); MEAN CORPUSCULAR HGB CONC 31.2 g/dl (32.0-37.0); MEAN CORPUSCULAR VOLUME 80.1 fl (82.0-101.0); MEAN PLATELET VOLUME 8.9 fl (7.4-10.4); MONOCYTE # 1.2 10^3/ul (0.3-0.9); NEUTROPHIL # 6.7 10^3/ul (1.6-7.5); NEUTROPHILS % 74.2 % (39.0-77.0); PLATELET COUNT 751 10^3/UL (140-415); RED BLOOD COUNT 3.72 10^6/ul (4.70-6.10); RED CELL DISTRIBUTION WIDTH 20.4 % (11.5-14.5)
[2017-07-12 06:41] LABS: ANION GAP 6 (8-16); BLOOD UREA NITROGEN 10 mg/dl (7-20); CALCIUM 7.7 mg/dl (8.4-10.2); CARBON DIOXIDE 36 mmol/L (21-31); CHLORIDE 102 mmol/L (97-110); CREATININE 0.59 mg/dl (0.61-1.24); GLUCOSE 96 mg/dl (70-220); POTASSIUM 4.2 mmol/L (3.5-5.1); SODIUM 140 mmol/L (135-144)
[2017-07-12] MEDS: BALSAM PERU/CASTOR OIL 60 GM TUBE TOP ×2 (08:15→21:27)
[2017-07-12] MEDS: ENOXAPARIN 100 MG/ML SYG SC ×2 (08:17→21:30)
[2017-07-12] MEDS: FAMOTIDINE 20 MG INJ IV (22:19)
[2017-07-13 05:46] LABS: ADD MAN DIFF? NO
[2017-07-13] MEDS: MEROPENEM 1 GM/50ML(PMX) 50 ML IVPB ×4 (05:49→21:13)
[2017-07-13] MEDS: morphine LIQ (10 MG/5 ML) CUP PO ×5 (05:49→21:12)
[2017-07-13 06:11] LABS: ANION GAP 8 (8-16); BLOOD UREA NITROGEN 12 mg/dl (7-20); CALCIUM 7.6 mg/dl (8.4-10.2); CARBON DIOXIDE 34 mmol/L (21-31); CHLORIDE 102 mmol/L (97-110); CREATININE 0.54 mg/dl (0.61-1.24); GLUCOSE 89 mg/dl (70-220); POTASSIUM 4.6 mmol/L (3.5-5.1); SODIUM 139 mmol/L (135-144)
[2017-07-13 06:40] LABS: WHITE BLOOD COUNT 7.7 10^3/ul (4.8-10.8)
[2017-07-13 06:40] LABS: BASOPHIL # 0.1 10^3/ul (0.0-0.1); EOSINOPHILS # 0.1 10^3/ul (0.0-0.5); EOSINOPHILS % 1.6 % (0.0-7.0); HEMATOCRIT 29.5 % (42.0-52.0); HEMOGLOBIN 9.2 g/dl (14.0-18.0); LYMPHOCYTES # 0.8 10^3/ul (0.8-2.9); LYMPHOCYTES % 9.7 % (15.0-51.0); MEAN CORPUSCULAR HGB CONC 31.2 g/dl (32.0-37.0); MEAN CORPUSCULAR VOLUME 80.2 fl (82.0-101.0); MEAN PLATELET VOLUME 10.4 fl (7.4-10.4); MONOCYTE # 0.9 10^3/ul (0.3-0.9); MONOCYTES % 11.6 % (0.0-11.0); NEUTROPHIL # 5.7 10^3/ul (1.6-7.5); NEUTROPHILS % 73.5 % (39.0-77.0); PLATELET COUNT 645 10^3/UL (140-415); POSITIVE DIFF @See below; RED BLOOD COUNT 3.68 10^6/ul (4.70-6.10); RED CELL DISTRIBUTION WIDTH 20.2 % (11.5-14.5)
[2017-07-13] MEDS: FAMOTIDINE 20 MG INJ IV ×2 (09:19→21:13)
[2017-07-13] MEDS: BALSAM PERU/CASTOR OIL 60 GM TUBE TOP ×2 (09:19→21:53)
[2017-07-13] MEDS: ENOXAPARIN 100 MG/ML SYG SC ×2 (09:25→21:27)
[2017-07-13] MEDS: SOD CHLORIDE 0.9% 100 ML (13:15)
[2017-07-13] MEDS: IOHEXOL 300MG/ML 150 ML BTL (13:15)
[2017-07-13] MEDS: IOHEXOL 14.3 MG(I)/ML (ADULT) BTL PO (20:00)
[2017-07-14] MEDS: morphine LIQ (10 MG/5 ML) CUP PO ×6 (00:34→20:00)
[2017-07-14 05:37] LABS: ADD MAN DIFF? NO
[2017-07-14] MEDS: MEROPENEM 1 GM/50ML(PMX) 50 ML IVPB ×3 (05:42→21:26)
[2017-07-14 05:46] LABS: WHITE BLOOD COUNT 6.9 10^3/ul (4.8-10.8)
[2017-07-14 05:46] LABS: BASOPHIL # 0.1 10^3/ul (0.0-0.1); BASOPHILS % 1.2 % (0.0-2.0); EOSINOPHILS # 0.2 10^3/ul (0.0-0.5); EOSINOPHILS % 2.8 % (0.0-7.0); HEMATOCRIT 28.8 % (42.0-52.0); LYMPHOCYTES # 0.7 10^3/ul (0.8-2.9); LYMPHOCYTES % 10.5 % (15.0-51.0); MEAN CORPUSCULAR HEMOGLOBIN 24.8 pg (29.0-33.0); MEAN CORPUSCULAR HGB CONC 31.3 g/dl (32.0-37.0); MEAN CORPUSCULAR VOLUME 79.3 fl (82.0-101.0); MEAN PLATELET VOLUME 9.3 fl (7.4-10.4); MONOCYTES % 14.7 % (0.0-11.0); NEUTROPHIL # 4.8 10^3/ul (1.6-7.5); NEUTROPHILS % 69.6 % (39.0-77.0); PLATELET COUNT 715 10^3/UL (140-415); RED BLOOD COUNT 3.63 10^6/ul (4.70-6.10); RED CELL DISTRIBUTION WIDTH 20.2 % (11.5-14.5)
[2017-07-14 06:08] LABS: ANION GAP 6 (8-16); BLOOD UREA NITROGEN 10 mg/dl (7-20); CALCIUM 7.5 mg/dl (8.4-10.2); CARBON DIOXIDE 34 mmol/L (21-31); CHLORIDE 102 mmol/L (97-110); CREATININE 0.56 mg/dl (0.61-1.24); GLUCOSE 92 mg/dl (70-220); MAGNESIUM 1.8 mg/dl (1.7-2.5); PHOSPHORUS 2.6 mg/dl (2.5-4.9); POTASSIUM 3.4 mmol/L (3.5-5.1); SODIUM 139 mmol/L (135-144)
[2017-07-14] MEDS: BALSAM PERU/CASTOR OIL 60 GM TUBE TOP ×2 (08:18→20:13)
[2017-07-14] MEDS: FAMOTIDINE 20 MG INJ IV ×2 (08:25→20:04)
[2017-07-14] MEDS: ENOXAPARIN 100 MG/ML SYG SC ×2 (08:29→20:12)
[2017-07-14] MEDS: SOD CHLORIDE 0.9% 500 ML (10:00)
[2017-07-14] MEDS: FENTAnyl 50 MCG/ML VIAL ×2 (10:15→10:17)
[2017-07-14] MEDS: LIDOCAINE 1% (MDV) 10 ML INJ (10:29)
[2017-07-14] MEDS: POTASSIUM CHLORIDE (SR) 20 MEQ TAB PO (11:50)
[2017-07-15] MEDS: MEROPENEM 1 GM/50ML(PMX) 50 ML IVPB ×3 (05:47→21:32)
[2017-07-15] MEDS: morphine LIQ (10 MG/5 ML) CUP PO ×6 (05:47→21:44)
[2017-07-15 06:15] LABS: HEMATOCRIT 30.4 % (42.0-52.0); HEMOGLOBIN 9.5 g/dl (14.0-18.0); MEAN CORPUSCULAR HEMOGLOBIN 24.9 pg (29.0-33.0); MEAN CORPUSCULAR HGB CONC 31.3 g/dl (32.0-37.0); MEAN CORPUSCULAR VOLUME 79.6 fl (82.0-101.0); MEAN PLATELET VOLUME 8.9 fl (7.4-10.4); PLATELET COUNT 777 10^3/UL (140-415); POSITIVE DIFF @See below; RED BLOOD COUNT 3.82 10^6/ul (4.70-6.10); RED CELL DISTRIBUTION WIDTH 20.2 % (11.5-14.5)
[2017-07-15 06:15] LABS: WHITE BLOOD COUNT 6.8 10^3/ul (4.8-10.8)
[2017-07-15 06:32] LABS: ANION GAP 2 (8-16); BLOOD UREA NITROGEN 9 mg/dl (7-20); CALCIUM 7.6 mg/dl (8.4-10.2); CARBON DIOXIDE 36 mmol/L (21-31); CHLORIDE 101 mmol/L (97-110); CREATININE 0.63 mg/dl (0.61-1.24); GLUCOSE 90 mg/dl (70-220); POTASSIUM 3.3 mmol/L (3.5-5.1); SODIUM 136 mmol/L (135-144)
[2017-07-15 06:36] LABS: ADD MAN DIFF? YES
[2017-07-15 08:33] LABS: ANISOCYTOSIS 1+ (0-0); BAND NEUTROPHILS % (M) 1 % (0-4); GIANT THROMBO% (M) 1 % (0-0); HYPOCHROMASIA 1+ (0-0); LYMPHOCYTES #M 0.2 10^3/ul (0.8-2.9); LYMPHOCYTES % (M) 3 % (15-51); MONOCYTE #M 0.8 10^3/ul (0.3-0.9); MONOCYTES % (M) 12 % (0-11); PLATELET ESTIMATE INCREASED; POIKILOCYTOSIS 1+ (0-0); POLYCHROMASIA 3+ (0-0); REACTIVE LYMPHOCYTES #M 0.2 10^3/ul (0.0-0.0); REACTIVE LYMPHOCYTES% (M) 3 % (0-0); SEG NEUT #M 5.5 10^3/ul (1.6-7.5); SEGMENTED NEUTROPHILS (M) % 81 % (39-77); SMUDGE%M 12 % (0-0)
[2017-07-15] MEDS: BALSAM PERU/CASTOR OIL 60 GM TUBE TOP ×2 (09:06→21:32)
[2017-07-15] MEDS: FAMOTIDINE 20 MG INJ IV ×2 (09:06→21:32)
[2017-07-15] MEDS: ENOXAPARIN 100 MG/ML SYG SC ×2 (09:18→21:34)
[2017-07-15] MEDS: POTASSIUM CHLORIDE (SR) 20 MEQ TAB PO (18:13)
[2017-07-16] MEDS: morphine LIQ (10 MG/5 ML) CUP PO ×5 (01:20→20:13)
[2017-07-16] MEDS: MEROPENEM 1 GM/50ML(PMX) 50 ML IVPB ×3 (05:40→21:16)
[2017-07-16 05:58] LABS: ADD MAN DIFF? NO
[2017-07-16 06:02] LABS: WHITE BLOOD COUNT 6.3 10^3/ul (4.8-10.8)
[2017-07-16 06:02] LABS: BASOPHIL # 0.1 10^3/ul (0.0-0.1); BASOPHILS % 1.3 % (0.0-2.0); EOSINOPHILS # 0.3 10^3/ul (0.0-0.5); HEMATOCRIT 27.6 % (42.0-52.0); HEMOGLOBIN 8.6 g/dl (14.0-18.0); LYMPHOCYTES % 15.7 % (15.0-51.0); MEAN CORPUSCULAR HEMOGLOBIN 25.1 pg (29.0-33.0); MEAN CORPUSCULAR HGB CONC 31.2 g/dl (32.0-37.0); MEAN CORPUSCULAR VOLUME 80.5 fl (82.0-101.0); NEUTROPHIL # 3.9 10^3/ul (1.6-7.5); NEUTROPHILS % 61.6 % (39.0-77.0); PLATELET COUNT 621 10^3/UL (140-415); RED BLOOD COUNT 3.43 10^6/ul (4.70-6.10); RED CELL DISTRIBUTION WIDTH 19.5 % (11.5-14.5)
[2017-07-16 06:24] LABS: ANION GAP 6 (8-16); BLOOD UREA NITROGEN 10 mg/dl (7-20); CALCIUM 7.5 mg/dl (8.4-10.2); CARBON DIOXIDE 35 mmol/L (21-31); CHLORIDE 100 mmol/L (97-110); CREATININE 0.62 mg/dl (0.61-1.24); GLUCOSE 88 mg/dl (70-220); POTASSIUM 3.5 mmol/L (3.5-5.1); SODIUM 137 mmol/L (135-144)
[2017-07-16] MEDS: ENOXAPARIN 100 MG/ML SYG SC (09:00)
[2017-07-16] MEDS: FAMOTIDINE 20 MG INJ IV ×2 (09:18→20:09)
[2017-07-16] MEDS: BALSAM PERU/CASTOR OIL 60 GM TUBE TOP ×2 (09:23→20:10)
[2017-07-16] MEDS: APIXABAN 5 MG TABLET PO ×2 (12:00→20:10)
[2017-07-17 04:21] LABS: ADD MAN DIFF? NO
[2017-07-17 04:23] LABS: BASOPHILS % 0.6 % (0.0-2.0); EOSINOPHILS # 0.3 10^3/ul (0.0-0.5); EOSINOPHILS % 4.5 % (0.0-7.0); HEMATOCRIT 28.9 % (42.0-52.0); LYMPHOCYTES % 14.3 % (15.0-51.0); MEAN CORPUSCULAR HGB CONC 31.1 g/dl (32.0-37.0); MEAN CORPUSCULAR VOLUME 80.3 fl (82.0-101.0); MEAN PLATELET VOLUME 8.4 fl (7.4-10.4); MONOCYTE # 0.8 10^3/ul (0.3-0.9); MONOCYTES % 12.5 % (0.0-11.0); NEUTROPHIL # 4.5 10^3/ul (1.6-7.5); NEUTROPHILS % 67.2 % (39.0-77.0); PLATELET COUNT 677 10^3/UL (140-415); RED CELL DISTRIBUTION WIDTH 19.3 % (11.5-14.5)
[2017-07-17 04:23] LABS: WHITE BLOOD COUNT 6.7 10^3/ul (4.8-10.8)
[2017-07-17] MEDS: morphine LIQ (10 MG/5 ML) CUP PO ×5 (04:29→20:56)
[2017-07-17 04:40] LABS: ANION GAP 6 (8-16); BLOOD UREA NITROGEN 9 mg/dl (7-20); CALCIUM 7.6 mg/dl (8.4-10.2); CARBON DIOXIDE 33 mmol/L (21-31); CHLORIDE 100 mmol/L (97-110); CREATININE 0.62 mg/dl (0.61-1.24); GLUCOSE 98 mg/dl (70-220); MAGNESIUM 1.7 mg/dl (1.7-2.5); PHOSPHORUS 2.6 mg/dl (2.5-4.9); POTASSIUM 3.6 mmol/L (3.5-5.1); SODIUM 135 mmol/L (135-144)
[2017-07-17] MEDS: MEROPENEM 1 GM/50ML(PMX) 50 ML IVPB ×2 (05:14→13:53)
[2017-07-17] MEDS: FAMOTIDINE 20 MG INJ IV ×2 (08:05→20:08)
[2017-07-17] MEDS: APIXABAN 5 MG TABLET PO ×2 (08:05→20:08)
[2017-07-17] MEDS: BALSAM PERU/CASTOR OIL 60 GM TUBE TOP ×2 (08:12→20:09)
[2017-07-17] MEDS: CIPROFLOXACIN 400MG/D5W 200 ML IVPB (20:08)
[2017-07-17] MEDS: metroNIDAZOLE 500 MG/NS (PMX) 100 ML IVPB (22:34)
[2017-07-18] MEDS: morphine LIQ (10 MG/5 ML) CUP PO ×2 (06:43→10:12)
[2017-07-18] MEDS: metroNIDAZOLE 500 MG/NS (PMX) 100 ML IVPB ×3 (06:43→21:55)
[2017-07-18] MEDS: APIXABAN 5 MG TABLET PO ×2 (09:30→20:08)
[2017-07-18] MEDS: FAMOTIDINE 20 MG INJ IV (09:30)
[2017-07-18] MEDS: CIPROFLOXACIN 400MG/D5W 200 ML IVPB ×2 (09:31→20:07)
[2017-07-18] MEDS: BALSAM PERU/CASTOR OIL 60 GM TUBE TOP ×2 (12:06→20:08)
[2017-07-18] MEDS: ONDANSETRON 4 MG INJ IV (14:48)
[2017-07-18] MEDS: morphine (ER) 15 MG TAB PO ×2 (15:30→20:08)
[2017-07-19] MEDS: metroNIDAZOLE 500 MG/NS (PMX) 100 ML IVPB ×3 (05:00→22:37)
[2017-07-19] MEDS: morphine LIQ (10 MG/5 ML) CUP PO ×2 (05:00→16:07)
[2017-07-19] MEDS: CIPROFLOXACIN 400MG/D5W 200 ML IVPB ×2 (08:03→20:17)
[2017-07-19] MEDS: APIXABAN 5 MG TABLET PO ×2 (08:03→20:19)
[2017-07-19] MEDS: BALSAM PERU/CASTOR OIL 60 GM TUBE TOP ×2 (08:05→20:20)
[2017-07-19] MEDS: morphine (ER) 15 MG TAB PO ×2 (09:06→20:20)
[2017-07-19] MEDS: ONDANSETRON 4 MG INJ IV (13:13)
[2017-07-19] MEDS: AL HYDROX/MG HYDROX/SIMETH 30 ML CUP PO (18:08)
[2017-07-20] MEDS: CIPROFLOXACIN 500 MG TAB PO ×2 (05:50→17:47)
[2017-07-20] MEDS: morphine LIQ (10 MG/5 ML) CUP PO ×2 (05:51→20:01)
[2017-07-20] MEDS: morphine (ER) 15 MG TAB PO ×2 (09:00→21:00)
[2017-07-20] MEDS: metroNIDAZOLE 500 MG TAB PO ×2 (09:33→12:29)
[2017-07-20] MEDS: APIXABAN 5 MG TABLET PO ×2 (09:33→20:01)
[2017-07-20] MEDS: BALSAM PERU/CASTOR OIL 60 GM TUBE TOP ×2 (09:34→20:05)
[2017-07-20] MEDS: ONDANSETRON 4 MG INJ IV (10:48)
[2017-07-20] MEDS ORDERED: BARIUM SULF 2% 450 ML BTL (BERRY SMOOTHIE) PO (14:00)
[2017-07-20] MEDS: IOHEXOL 14.3 MG(I)/ML (ADULT) BTL PO ×2 (16:12→17:47)
[2017-07-20] MEDS: SOD CHLORIDE 0.9% 100 ML (19:29)
[2017-07-20] MEDS: IOHEXOL 300MG/ML 150 ML BTL (19:29)
[2017-07-20] MEDS: AL HYDROX/MG HYDROX/SIMETH 30 ML CUP PO (20:00)
[2017-07-21] MEDS: morphine LIQ (10 MG/5 ML) CUP PO ×4 (01:09→18:22)
[2017-07-21] MEDS: CIPROFLOXACIN 500 MG TAB PO (05:42)
[2017-07-21 05:51] LABS: ADD MAN DIFF? NO; BASOPHIL # 0.1 10^3/ul (0.0-0.1); EOSINOPHILS # 0.2 10^3/ul (0.0-0.5); EOSINOPHILS % 2.4 % (0.0-7.0); HEMATOCRIT 29.2 % (42.0-52.0); HEMOGLOBIN 9.1 g/dl (14.0-18.0); LYMPHOCYTES % 10.5 % (15.0-51.0); MEAN CORPUSCULAR HEMOGLOBIN 24.5 pg (29.0-33.0); MEAN CORPUSCULAR HGB CONC 31.2 g/dl (32.0-37.0); MEAN CORPUSCULAR VOLUME 78.5 fl (82.0-101.0); MEAN PLATELET VOLUME 8.5 fl (7.4-10.4); MONOCYTE # 1.1 10^3/ul (0.3-0.9); MONOCYTES % 11.9 % (0.0-11.0); NEUTROPHIL # 6.8 10^3/ul (1.6-7.5); NEUTROPHILS % 73.1 % (39.0-77.0); PLATELET COUNT 651 10^3/UL (140-415); RED BLOOD COUNT 3.72 10^6/ul (4.70-6.10); RED CELL DISTRIBUTION WIDTH 19.7 % (11.5-14.5)
[2017-07-21 05:51] LABS: WHITE BLOOD COUNT 9.3 10^3/ul (4.8-10.8)
[2017-07-21 06:20] LABS: ALANINE AMINOTRANSFERASE 18 IU/L (13-69); ALBUMIN 2.2 g/dl (3.3-4.9); ALBUMIN/GLOBULIN RATIO 0.73; ALKALINE PHOSPHATASE 105 IU/L (42-121); ANION GAP 10 (8-16); ASPARTATE AMINO TRANSFERASE 15 IU/L (15-46); BILIRUBIN,INDIRECT 0.2 mg/dl (0-1.1); BILIRUBIN,TOTAL 0.2 mg/dl (0.2-1.3); BLOOD UREA NITROGEN 9 mg/dl (7-20); CALCIUM 7.6 mg/dl (8.4-10.2); CARBON DIOXIDE 31 mmol/L (21-31); CHLORIDE 99 mmol/L (97-110); CREATININE 0.65 mg/dl (0.61-1.24); GLUCOSE 75 mg/dl (70-220); POTASSIUM 3.5 mmol/L (3.5-5.1); SODIUM 136 mmol/L (135-144); TOTAL PROTEIN 5.2 g/dl (6.1-8.1)
[2017-07-21] MEDS: AL HYDROX/MG HYDROX/SIMETH 30 ML CUP PO (06:51)
[2017-07-21] MEDS: APIXABAN 5 MG TABLET PO ×2 (08:47→20:39)
[2017-07-21] MEDS: BALSAM PERU/CASTOR OIL 60 GM TUBE TOP ×2 (08:47→20:40)
[2017-07-21] MEDS: morphine (ER) 15 MG TAB PO ×2 (08:48→20:39)
[2017-07-21] MEDS: FUROSEMIDE 20 MG INJ IV ×2 (10:56→17:08)
[2017-07-21] MEDS ORDERED: AMPICILLIN 1 GM/NS (PMX) 50 ML IVPB (16:00)
[2017-07-21] MEDS: AMPICILLIN 1 GM/NS (PMX) 50 ML IVPB ×2 (17:08→23:45)
[2017-07-21] MEDS: CIPROFLOXACIN 400MG/D5W 200 ML IVPB (20:39)
[2017-07-22] MEDS: morphine LIQ (10 MG/5 ML) CUP PO ×2 (01:54→16:02)
[2017-07-22] MEDS: FUROSEMIDE 20 MG INJ IV ×2 (06:06→17:18)
[2017-07-22] MEDS: AMPICILLIN 1 GM/NS (PMX) 50 ML IVPB ×3 (06:06→17:22)
[2017-07-22 06:39] LABS: INR 2.33; PROTIME 26.2 Sec (11.9-14.9)
[2017-07-22 06:40] LABS: PARTIAL THROMBOPLASTIN TIME 60.9 Sec (25.0-35.0)
[2017-07-22] MEDS: morphine (ER) 15 MG TAB PO ×2 (08:47→20:41)
[2017-07-22] MEDS: APIXABAN 5 MG TABLET PO (08:47)
[2017-07-22] MEDS: CIPROFLOXACIN 400MG/D5W 200 ML IVPB ×2 (08:47→20:41)
[2017-07-22] MEDS: BALSAM PERU/CASTOR OIL 60 GM TUBE TOP ×2 (08:49→20:42)
[2017-07-22] MEDS: AL HYDROX/MG HYDROX/SIMETH 30 ML CUP PO ×2 (08:53→16:09)
[2017-07-22] MEDS: SOD CHLORIDE 0.9% 500 ML IV (18:00)
[2017-07-23] MEDS: AMPICILLIN 1 GM/NS (PMX) 50 ML IVPB ×5 (00:07→23:45)
[2017-07-23] MEDS: morphine LIQ (10 MG/5 ML) CUP PO ×3 (00:08→14:47)
[2017-07-23] MEDS: AL HYDROX/MG HYDROX/SIMETH 30 ML CUP PO ×2 (00:50→14:47)
[2017-07-23] MEDS: FUROSEMIDE 20 MG INJ IV (05:11)
[2017-07-23] MEDS: CIPROFLOXACIN 400MG/D5W 200 ML IVPB ×2 (09:09→21:04)
[2017-07-23] MEDS: morphine (ER) 15 MG TAB PO ×2 (09:09→21:04)
[2017-07-23] MEDS: BALSAM PERU/CASTOR OIL 60 GM TUBE TOP ×2 (09:10→21:05)
[2017-07-23 10:36] LABS: ADD MAN DIFF? NO
[2017-07-23 10:40] LABS: BASOPHIL # 0.1 10^3/ul (0.0-0.1); BASOPHILS % 0.6 % (0.0-2.0); EOSINOPHILS # 0.1 10^3/ul (0.0-0.5); HEMOGLOBIN 9.6 g/dl (14.0-18.0); MEAN CORPUSCULAR HEMOGLOBIN 24.7 pg (29.0-33.0); MEAN CORPUSCULAR VOLUME 79.9 fl (82.0-101.0); MEAN PLATELET VOLUME 8.7 fl (7.4-10.4); MONOCYTE # 1.5 10^3/ul (0.3-0.9); MONOCYTES % 11.7 % (0.0-11.0); NEUTROPHIL # 9.8 10^3/ul (1.6-7.5); NEUTROPHILS % 77.9 % (39.0-77.0); PLATELET COUNT 613 10^3/UL (140-415); RED BLOOD COUNT 3.88 10^6/ul (4.70-6.10); RED CELL DISTRIBUTION WIDTH 19.8 % (11.5-14.5)
[2017-07-23 10:40] LABS: WHITE BLOOD COUNT 12.6 10^3/ul (4.8-10.8)
[2017-07-23 11:03] LABS: ANION GAP 6 (8-16); BLOOD UREA NITROGEN 11 mg/dl (7-20); CALCIUM 7.7 mg/dl (8.4-10.2); CARBON DIOXIDE 36 mmol/L (21-31); CHLORIDE 95 mmol/L (97-110); CREATININE 0.66 mg/dl (0.61-1.24); GLUCOSE 133 mg/dl (70-220); POTASSIUM 4.1 mmol/L (3.5-5.1); SODIUM 133 mmol/L (135-144)
[2017-07-24 05:37] LABS: ADD MAN DIFF? NO
[2017-07-24 05:42] LABS: ABNORMAL IP MESSAGE 1; BASOPHIL # 0.1 10^3/ul (0.0-0.1); BASOPHILS % 0.7 % (0.0-2.0); EOSINOPHILS # 0.2 10^3/ul (0.0-0.5); EOSINOPHILS % 1.1 % (0.0-7.0); HEMATOCRIT 29.6 % (42.0-52.0); HEMOGLOBIN 9.5 g/dl (14.0-18.0); LYMPHOCYTES # 1.3 10^3/ul (0.8-2.9); LYMPHOCYTES % 9.5 % (15.0-51.0); MEAN CORPUSCULAR HEMOGLOBIN 25.3 pg (29.0-33.0); MEAN CORPUSCULAR HGB CONC 32.1 g/dl (32.0-37.0); MEAN CORPUSCULAR VOLUME 78.9 fl (82.0-101.0); MEAN PLATELET VOLUME 8.8 fl (7.4-10.4); MONOCYTE # 1.8 10^3/ul (0.3-0.9); MONOCYTES % 13.2 % (0.0-11.0); NEUTROPHIL # 10.2 10^3/ul (1.6-7.5); NEUTROPHILS % 74.4 % (39.0-77.0); PLATELET COUNT 597 10^3/UL (140-415); POSITIVE DIFF @See below; RED BLOOD COUNT 3.75 10^6/ul (4.70-6.10); RED CELL DISTRIBUTION WIDTH 20.1 % (11.5-14.5)
[2017-07-24 05:42] LABS: WHITE BLOOD COUNT 13.7 10^3/ul (4.8-10.8)
[2017-07-24] MEDS: AMPICILLIN 1 GM/NS (PMX) 50 ML IVPB ×3 (06:05→18:16)
[2017-07-24 06:15] LABS: ANION GAP 7 (8-16); BLOOD UREA NITROGEN 9 mg/dl (7-20); CALCIUM 7.5 mg/dl (8.4-10.2); CARBON DIOXIDE 36 mmol/L (21-31); CHLORIDE 96 mmol/L (97-110); CREATININE 0.64 mg/dl (0.61-1.24); GLUCOSE 97 mg/dl (70-220); POTASSIUM 3.9 mmol/L (3.5-5.1); SODIUM 135 mmol/L (135-144)
[2017-07-24] MEDS: CIPROFLOXACIN 400MG/D5W 200 ML IVPB ×2 (08:56→20:48)
[2017-07-24] MEDS: morphine (ER) 15 MG TAB PO ×2 (09:00→20:48)
[2017-07-24] MEDS: BALSAM PERU/CASTOR OIL 60 GM TUBE TOP ×2 (09:01→20:49)
[2017-07-24 11:45] LABS: INR 1.54; PROTIME 18.8 Sec (11.9-14.9); PT RATIO 1.5
[2017-07-24 11:46] LABS: PARTIAL THROMBOPLASTIN TIME 51.3 Sec (25.0-35.0)
[2017-07-24] MEDS: morphine LIQ (10 MG/5 ML) CUP PO ×2 (14:45→17:46)
[2017-07-24] MEDS: AL HYDROX/MG HYDROX/SIMETH 30 ML CUP PO (20:48)
[2017-07-25] MEDS: AMPICILLIN 1 GM/NS (PMX) 50 ML IVPB ×4 (00:15→17:58)
[2017-07-25 00:56] LABS: TYPE AND SCREEN 1 1
[2017-07-25 05:43] LABS: ADD MAN DIFF? NO
[2017-07-25 05:46] LABS: ABNORMAL IP MESSAGE 1; BASOPHIL # 0.1 10^3/ul (0.0-0.1); BASOPHILS % 0.5 % (0.0-2.0); EOSINOPHILS # 0.1 10^3/ul (0.0-0.5); EOSINOPHILS % 0.9 % (0.0-7.0); HEMATOCRIT 25.5 % (42.0-52.0); HEMOGLOBIN 8.1 g/dl (14.0-18.0); LYMPHOCYTES % 8.6 % (15.0-51.0); MEAN CORPUSCULAR HEMOGLOBIN 25.2 pg (29.0-33.0); MEAN CORPUSCULAR HGB CONC 31.8 g/dl (32.0-37.0); MEAN CORPUSCULAR VOLUME 79.4 fl (82.0-101.0); MONOCYTE # 1.6 10^3/ul (0.3-0.9); NEUTROPHIL # 8.2 10^3/ul (1.6-7.5); NEUTROPHILS % 74.6 % (39.0-77.0); PLATELET COUNT 432 10^3/UL (140-415); POSITIVE DIFF @See below; RED BLOOD COUNT 3.21 10^6/ul (4.70-6.10); RED CELL DISTRIBUTION WIDTH 19.4 % (11.5-14.5)
[2017-07-25 06:16] LABS: INR 1.39; PROTIME 17.3 Sec (11.9-14.9); PT RATIO 1.4
[2017-07-25 06:29] LABS: ANION GAP 7 (8-16); BLOOD UREA NITROGEN 9 mg/dl (7-20); CALCIUM 7.6 mg/dl (8.4-10.2); CARBON DIOXIDE 34 mmol/L (21-31); CHLORIDE 97 mmol/L (97-110); GLUCOSE 96 mg/dl (70-220); MAGNESIUM 1.9 mg/dl (1.7-2.5); POTASSIUM 3.4 mmol/L (3.5-5.1); SODIUM 135 mmol/L (135-144)
[2017-07-25 06:32] LABS: MONOCYTES % 14.7 % (0.0-11.0)
[2017-07-25] MEDS: CIPROFLOXACIN 400MG/D5W 200 ML IVPB ×2 (08:39→20:49)
[2017-07-25] MEDS: morphine (ER) 15 MG TAB PO ×2 (08:43→20:49)
[2017-07-25] MEDS: DIPHENHYDRAMINE 50 MG INJ (11:21)
[2017-07-25] MEDS: FENTAnyl 50 MCG/ML VIAL (12:20)
[2017-07-25] MEDS: LIDOCAINE 1% (MDV) 10 ML INJ (12:20)
[2017-07-25] MEDS: morphine LIQ (10 MG/5 ML) CUP PO ×2 (13:37→18:46)
[2017-07-25] MEDS: BALSAM PERU/CASTOR OIL 60 GM TUBE TOP ×2 (13:38→20:50)
[2017-07-25] MEDS: POTASSIUM CHLORIDE 100 ML IVPB ×2 (14:35→17:59)
[2017-07-25] MEDS: AL HYDROX/MG HYDROX/SIMETH 30 ML CUP PO (22:16)
[2017-07-26] MEDS: AMPICILLIN 1 GM/NS (PMX) 50 ML IVPB ×5 (00:34→23:54)
[2017-07-26] MEDS: morphine LIQ (10 MG/5 ML) CUP PO ×2 (05:46→16:20)
[2017-07-26 06:13] LABS: ADD MAN DIFF? NO
[2017-07-26 06:15] LABS: ABNORMAL IP MESSAGE 1; BASOPHIL # 0.1 10^3/ul (0.0-0.1); BASOPHILS % 0.5 % (0.0-2.0); EOSINOPHILS % 0.3 % (0.0-7.0); HEMATOCRIT 27.6 % (42.0-52.0); HEMOGLOBIN 8.8 g/dl (14.0-18.0); LYMPHOCYTES # 0.9 10^3/ul (0.8-2.9); LYMPHOCYTES % 6.6 % (15.0-51.0); MEAN CORPUSCULAR HEMOGLOBIN 25.3 pg (29.0-33.0); MEAN CORPUSCULAR HGB CONC 31.9 g/dl (32.0-37.0); MEAN CORPUSCULAR VOLUME 79.3 fl (82.0-101.0); MEAN PLATELET VOLUME 9.3 fl (7.4-10.4); MONOCYTE # 1.7 10^3/ul (0.3-0.9); MONOCYTES % 12.8 % (0.0-11.0); NEUTROPHIL # 10.5 10^3/ul (1.6-7.5); PLATELET COUNT 466 10^3/UL (140-415); POSITIVE DIFF @See below; RED BLOOD COUNT 3.48 10^6/ul (4.70-6.10); RED CELL DISTRIBUTION WIDTH 19.7 % (11.5-14.5)
[2017-07-26 06:15] LABS: WHITE BLOOD COUNT 13.2 10^3/ul (4.8-10.8)
[2017-07-26 07:02] LABS: ANION GAP 8 (8-16); BLOOD UREA NITROGEN 10 mg/dl (7-20); CALCIUM 7.4 mg/dl (8.4-10.2); CARBON DIOXIDE 29 mmol/L (21-31); CHLORIDE 98 mmol/L (97-110); GLUCOSE 90 mg/dl (70-220); POTASSIUM 3.6 mmol/L (3.5-5.1); SODIUM 131 mmol/L (135-144)
[2017-07-26] MEDS: CIPROFLOXACIN 400MG/D5W 200 ML IVPB ×2 (08:43→21:00)
[2017-07-26] MEDS: morphine (ER) 15 MG TAB PO ×2 (08:43→21:00)
[2017-07-26] MEDS: BALSAM PERU/CASTOR OIL 60 GM TUBE TOP ×2 (08:49→21:00)
[2017-07-26] MEDS: AL HYDROX/MG HYDROX/SIMETH 30 ML CUP PO (16:20)
[2017-07-26] MEDS: APIXABAN 5 MG TABLET PO (21:00)
[2017-07-27] MEDS: AMPICILLIN 1 GM/NS (PMX) 50 ML IVPB ×4 (05:58→23:44)
[2017-07-27] MEDS: CIPROFLOXACIN 400MG/D5W 200 ML IVPB (08:24)
[2017-07-27] MEDS: AL HYDROX/MG HYDROX/SIMETH 30 ML CUP PO (08:24)
[2017-07-27] MEDS: APIXABAN 5 MG TABLET PO ×2 (08:25→20:24)
[2017-07-27] MEDS: morphine (ER) 15 MG TAB PO ×2 (08:25→21:15)
[2017-07-27] MEDS: BALSAM PERU/CASTOR OIL 60 GM TUBE TOP ×2 (12:48→20:25)
[2017-07-27] MEDS: morphine LIQ (10 MG/5 ML) CUP PO ×4 (12:56→22:54)
[2017-07-27 14:14] LABS: ADD MAN DIFF? NO
[2017-07-27 14:16] LABS: WHITE BLOOD COUNT 14.5 10^3/ul (4.8-10.8)
[2017-07-27 14:16] LABS: ABNORMAL IP MESSAGE 1; BASOPHIL # 0.1 10^3/ul (0.0-0.1); BASOPHILS % 0.6 % (0.0-2.0); EOSINOPHILS # 0.1 10^3/ul (0.0-0.5); EOSINOPHILS % 0.8 % (0.0-7.0); HEMATOCRIT 27.9 % (42.0-52.0); HEMOGLOBIN 8.6 g/dl (14.0-18.0); LYMPHOCYTES # 0.9 10^3/ul (0.8-2.9); LYMPHOCYTES % 6.2 % (15.0-51.0); MEAN CORPUSCULAR HEMOGLOBIN 24.9 pg (29.0-33.0); MEAN CORPUSCULAR HGB CONC 30.8 g/dl (32.0-37.0); MEAN CORPUSCULAR VOLUME 80.6 fl (82.0-101.0); MEAN PLATELET VOLUME 8.5 fl (7.4-10.4); MONOCYTE # 1.6 10^3/ul (0.3-0.9); MONOCYTES % 11.3 % (0.0-11.0); NEUTROPHIL # 11.6 10^3/ul (1.6-7.5); NEUTROPHILS % 80.5 % (39.0-77.0); PLATELET COUNT 435 10^3/UL (140-415); POSITIVE DIFF @See below; RED BLOOD COUNT 3.46 10^6/ul (4.70-6.10); RED CELL DISTRIBUTION WIDTH 19.2 % (11.5-14.5)
[2017-07-27 14:35] LABS: ANION GAP 9 (8-16); BLOOD UREA NITROGEN 9 mg/dl (7-20); CALCIUM 7.6 mg/dl (8.4-10.2); CARBON DIOXIDE 33 mmol/L (21-31); CHLORIDE 97 mmol/L (97-110); GLUCOSE 109 mg/dl (70-220); POTASSIUM 3.9 mmol/L (3.5-5.1); SODIUM 135 mmol/L (135-144)
[2017-07-27] MEDS: CIPROFLOXACIN 500 MG TAB NGT (17:56)
[2017-07-28] MEDS: CIPROFLOXACIN 500 MG TAB NGT ×2 (05:33→18:48)
[2017-07-28] MEDS: AMPICILLIN 1 GM/NS (PMX) 50 ML IVPB ×4 (05:34→23:50)
[2017-07-28 05:37] LABS: ADD MAN DIFF? NO
[2017-07-28 05:45] LABS: WHITE BLOOD COUNT 13.5 10^3/ul (4.8-10.8)
[2017-07-28 05:45] LABS: ABNORMAL IP MESSAGE 1; BASOPHIL # 0.1 10^3/ul (0.0-0.1); BASOPHILS % 0.8 % (0.0-2.0); EOSINOPHILS # 0.2 10^3/ul (0.0-0.5); EOSINOPHILS % 1.1 % (0.0-7.0); HEMATOCRIT 28.1 % (42.0-52.0); HEMOGLOBIN 8.7 g/dl (14.0-18.0); LYMPHOCYTES # 1.4 10^3/ul (0.8-2.9); LYMPHOCYTES % 10.2 % (15.0-51.0); MEAN CORPUSCULAR HEMOGLOBIN 24.9 pg (29.0-33.0); MEAN CORPUSCULAR VOLUME 80.5 fl (82.0-101.0); MEAN PLATELET VOLUME 8.7 fl (7.4-10.4); MONOCYTE # 1.6 10^3/ul (0.3-0.9); MONOCYTES % 11.8 % (0.0-11.0); NEUTROPHIL # 10.2 10^3/ul (1.6-7.5); NEUTROPHILS % 75.5 % (39.0-77.0); PLATELET COUNT 497 10^3/UL (140-415); POSITIVE DIFF @See below; RED BLOOD COUNT 3.49 10^6/ul (4.70-6.10); RED CELL DISTRIBUTION WIDTH 19.3 % (11.5-14.5)
[2017-07-28 06:07] LABS: ANION GAP 8 (8-16); BLOOD UREA NITROGEN 8 mg/dl (7-20); CALCIUM 7.8 mg/dl (8.4-10.2); CARBON DIOXIDE 33 mmol/L (21-31); CHLORIDE 100 mmol/L (97-110); CREATININE 0.63 mg/dl (0.61-1.24); GLUCOSE 115 mg/dl (70-220); POTASSIUM 4.2 mmol/L (3.5-5.1); SODIUM 137 mmol/L (135-144)
[2017-07-28] MEDS: APIXABAN 5 MG TABLET PO ×2 (08:44→20:38)
[2017-07-28] MEDS: morphine (ER) 15 MG TAB PO ×2 (08:45→20:39)
[2017-07-28] MEDS: BALSAM PERU/CASTOR OIL 60 GM TUBE TOP ×2 (09:03→20:39)
[2017-07-28] MEDS: AL HYDROX/MG HYDROX/SIMETH 30 ML CUP PO ×2 (10:00→21:16)
[2017-07-28] MEDS: FUROSEMIDE 40 MG INJ IV (13:10)
[2017-07-28] MEDS: morphine LIQ (10 MG/5 ML) CUP PO ×2 (13:25→23:50)
[2017-07-29] MEDS: CIPROFLOXACIN 500 MG TAB NGT ×2 (05:53→18:31)
[2017-07-29] MEDS: AMPICILLIN 1 GM/NS (PMX) 50 ML IVPB ×4 (05:53→23:47)
[2017-07-29 06:05] LABS: ADD MAN DIFF? NO
[2017-07-29 06:24] LABS: WHITE BLOOD COUNT 13.6 10^3/ul (4.8-10.8)
[2017-07-29 06:24] LABS: ABNORMAL IP MESSAGE 1; BASOPHIL # 0.1 10^3/ul (0.0-0.1); BASOPHILS % 0.8 % (0.0-2.0); EOSINOPHILS # 0.2 10^3/ul (0.0-0.5); EOSINOPHILS % 1.5 % (0.0-7.0); HEMATOCRIT 25.6 % (42.0-52.0); LYMPHOCYTES # 1.1 10^3/ul (0.8-2.9); LYMPHOCYTES % 8.3 % (15.0-51.0); MEAN CORPUSCULAR HEMOGLOBIN 24.8 pg (29.0-33.0); MEAN CORPUSCULAR HGB CONC 31.3 g/dl (32.0-37.0); MEAN CORPUSCULAR VOLUME 79.3 fl (82.0-101.0); MEAN PLATELET VOLUME 8.7 fl (7.4-10.4); MONOCYTE # 1.8 10^3/ul (0.3-0.9); MONOCYTES % 13.1 % (0.0-11.0); NEUTROPHIL # 10.3 10^3/ul (1.6-7.5); NEUTROPHILS % 75.6 % (39.0-77.0); PLATELET COUNT 415 10^3/UL (140-415); POSITIVE DIFF @See below; RED BLOOD COUNT 3.23 10^6/ul (4.70-6.10); RED CELL DISTRIBUTION WIDTH 18.6 % (11.5-14.5)
[2017-07-29 06:42] LABS: ANION GAP 10 (8-16); BLOOD UREA NITROGEN 8 mg/dl (7-20); CALCIUM 7.6 mg/dl (8.4-10.2); CARBON DIOXIDE 33 mmol/L (21-31); CHLORIDE 96 mmol/L (97-110); CREATININE 0.62 mg/dl (0.61-1.24); GLUCOSE 98 mg/dl (70-220); MAGNESIUM 1.9 mg/dl (1.7-2.5); POTASSIUM 3.2 mmol/L (3.5-5.1); SODIUM 136 mmol/L (135-144)
[2017-07-29] MEDS: morphine (ER) 15 MG TAB PO ×2 (08:51→20:50)
[2017-07-29] MEDS: APIXABAN 5 MG TABLET PO ×2 (08:51→20:50)
[2017-07-29] MEDS: BALSAM PERU/CASTOR OIL 60 GM TUBE TOP ×2 (08:52→20:51)
[2017-07-29] MEDS: morphine LIQ (10 MG/5 ML) CUP PO ×2 (12:13→15:46)
[2017-07-29] MEDS: AL HYDROX/MG HYDROX/SIMETH 30 ML CUP PO (13:38)
[2017-07-29] MEDS: POTASSIUM CHLORIDE 100 ML IVPB (17:37)
[2017-07-29] MEDS: FUROSEMIDE 20 MG INJ IV (18:31)
[2017-07-30] MEDS: morphine LIQ (10 MG/5 ML) CUP PO ×5 (05:14→23:59)
[2017-07-30] MEDS: CIPROFLOXACIN 500 MG TAB NGT ×2 (05:14→17:39)
[2017-07-30] MEDS: AMPICILLIN 1 GM/NS (PMX) 50 ML IVPB ×4 (05:15→23:56)
[2017-07-30] MEDS: AL HYDROX/MG HYDROX/SIMETH 30 ML CUP PO ×2 (05:18→17:38)
[2017-07-30 05:24] LABS: ADD MAN DIFF? NO
[2017-07-30 05:34] LABS: BASOPHIL # 0.1 10^3/ul (0.0-0.1); BASOPHILS % 0.9 % (0.0-2.0); EOSINOPHILS # 0.2 10^3/ul (0.0-0.5); EOSINOPHILS % 1.7 % (0.0-7.0); HEMATOCRIT 26.1 % (42.0-52.0); HEMOGLOBIN 8.3 g/dl (14.0-18.0); LYMPHOCYTES # 1.2 10^3/ul (0.8-2.9); LYMPHOCYTES % 8.9 % (15.0-51.0); MEAN CORPUSCULAR HEMOGLOBIN 24.9 pg (29.0-33.0); MEAN CORPUSCULAR HGB CONC 31.8 g/dl (32.0-37.0); MEAN CORPUSCULAR VOLUME 78.1 fl (82.0-101.0); MEAN PLATELET VOLUME 9.2 fl (7.4-10.4); MONOCYTE # 1.5 10^3/ul (0.3-0.9); MONOCYTES % 11.3 % (0.0-11.0); NEUTROPHIL # 9.9 10^3/ul (1.6-7.5); NEUTROPHILS % 76.4 % (39.0-77.0); PLATELET COUNT 491 10^3/UL (140-415); RED BLOOD COUNT 3.34 10^6/ul (4.70-6.10); RED CELL DISTRIBUTION WIDTH 18.9 % (11.5-14.5)
[2017-07-30 05:34] LABS: WHITE BLOOD COUNT 12.9 10^3/ul (4.8-10.8)
[2017-07-30 05:57] LABS: ANION GAP 12 (8-16); BLOOD UREA NITROGEN 7 mg/dl (7-20); CALCIUM 7.8 mg/dl (8.4-10.2); CARBON DIOXIDE 36 mmol/L (21-31); CHLORIDE 92 mmol/L (97-110); CREATININE 0.63 mg/dl (0.61-1.24); GLUCOSE 105 mg/dl (70-220); POTASSIUM 3.4 mmol/L (3.5-5.1); SODIUM 137 mmol/L (135-144)
[2017-07-30] MEDS: FUROSEMIDE 20 MG INJ IV (08:16)
[2017-07-30] MEDS: morphine (ER) 15 MG TAB PO ×2 (08:16→20:58)
[2017-07-30] MEDS: APIXABAN 5 MG TABLET PO ×2 (08:25→20:59)
[2017-07-30] MEDS: BALSAM PERU/CASTOR OIL 60 GM TUBE TOP ×2 (09:00→20:58)
[2017-07-30] MEDS: POTASSIUM CHLORIDE (SR) 20 MEQ TAB PO (12:53)
[2017-07-31] MEDS: CIPROFLOXACIN 500 MG TAB NGT ×2 (05:42→17:13)
[2017-07-31] MEDS: morphine LIQ (10 MG/5 ML) CUP PO ×4 (05:43→23:34)
[2017-07-31] MEDS: AMPICILLIN 1 GM/NS (PMX) 50 ML IVPB ×4 (05:43→23:34)
[2017-07-31 06:19] LABS: ADD MAN DIFF? NO
[2017-07-31 06:29] LABS: BASOPHIL # 0.1 10^3/ul (0.0-0.1); BASOPHILS % 0.8 % (0.0-2.0); EOSINOPHILS # 0.2 10^3/ul (0.0-0.5); EOSINOPHILS % 2.2 % (0.0-7.0); HEMOGLOBIN 8.3 g/dl (14.0-18.0); LYMPHOCYTES # 1.2 10^3/ul (0.8-2.9); LYMPHOCYTES % 10.8 % (15.0-51.0); MEAN CORPUSCULAR HEMOGLOBIN 24.6 pg (29.0-33.0); MEAN CORPUSCULAR HGB CONC 30.7 g/dl (32.0-37.0); MEAN CORPUSCULAR VOLUME 79.9 fl (82.0-101.0); MONOCYTE # 1.2 10^3/ul (0.3-0.9); MONOCYTES % 10.5 % (0.0-11.0); NEUTROPHIL # 8.4 10^3/ul (1.6-7.5); NEUTROPHILS % 75.2 % (39.0-77.0); PLATELET COUNT 478 10^3/UL (140-415); RED BLOOD COUNT 3.38 10^6/ul (4.70-6.10); RED CELL DISTRIBUTION WIDTH 18.6 % (11.5-14.5)
[2017-07-31 06:29] LABS: WHITE BLOOD COUNT 11.2 10^3/ul (4.8-10.8)
[2017-07-31 06:49] LABS: ANION GAP 10 (8-16); BLOOD UREA NITROGEN 9 mg/dl (7-20); CALCIUM 7.8 mg/dl (8.4-10.2); CARBON DIOXIDE 34 mmol/L (21-31); CHLORIDE 98 mmol/L (97-110); CREATININE 0.62 mg/dl (0.61-1.24); GLUCOSE 101 mg/dl (70-220); POTASSIUM 3.8 mmol/L (3.5-5.1); SODIUM 138 mmol/L (135-144)
[2017-07-31 07:05] LABS: C-REACTIVE PROTEIN 16.3 mg/dl (0.0-0.9)
[2017-07-31 08:00] LABS: ERYTHROCYTE SEDIMENTATION RATE 75 mm/Hr (0-20)
[2017-07-31] MEDS: morphine (ER) 15 MG TAB PO ×2 (09:08→20:51)
[2017-07-31] MEDS: FUROSEMIDE 20 MG INJ IV (09:09)
[2017-07-31] MEDS: BALSAM PERU/CASTOR OIL 60 GM TUBE TOP ×2 (09:09→20:52)
[2017-07-31] MEDS: APIXABAN 5 MG TABLET PO ×2 (09:09→20:52)
[2017-07-31] MEDS: AL HYDROX/MG HYDROX/SIMETH 30 ML CUP PO ×2 (09:17→18:41)
[2017-08-01] MEDS: morphine LIQ (10 MG/5 ML) CUP PO ×2 (04:26→18:26)
[2017-08-01] MEDS: AMPICILLIN 1 GM/NS (PMX) 50 ML IVPB ×4 (05:19→23:10)
[2017-08-01] MEDS: CIPROFLOXACIN 500 MG TAB NGT ×2 (05:19→17:25)
[2017-08-01] MEDS: APIXABAN 5 MG TABLET PO (08:39)
[2017-08-01] MEDS: FUROSEMIDE 20 MG INJ IV (08:40)
[2017-08-01] MEDS: morphine (ER) 15 MG TAB PO ×2 (08:40→20:05)
[2017-08-01] MEDS: BALSAM PERU/CASTOR OIL 60 GM TUBE TOP ×2 (08:41→23:10)
[2017-08-01] MEDS: AL HYDROX/MG HYDROX/SIMETH 30 ML CUP PO (20:04)
[2017-08-02] MEDS: morphine LIQ (10 MG/5 ML) CUP PO ×2 (03:16→15:04)
[2017-08-02] MEDS: CIPROFLOXACIN 500 MG TAB NGT ×2 (05:01→17:37)
[2017-08-02] MEDS: AMPICILLIN 1 GM/NS (PMX) 50 ML IVPB ×4 (05:01→23:36)
[2017-08-02] MEDS: morphine (ER) 15 MG TAB PO ×2 (08:50→20:41)
[2017-08-02] MEDS: FUROSEMIDE 20 MG INJ IV (08:51)
[2017-08-02] MEDS: BALSAM PERU/CASTOR OIL 60 GM TUBE TOP (08:52)
[2017-08-02 15:44] LABS: TOTAL IRON BINDING CAPACITY 120 ug/dl (241-421)
[2017-08-02 15:59] LABS: IRON < 10 ug/dl (35-150)
[2017-08-02] MEDS: AL HYDROX/MG HYDROX/SIMETH 30 ML CUP PO (17:53)
[2017-08-03] MEDS: AMPICILLIN 1 GM/NS (PMX) 50 ML IVPB ×3 (06:23→16:54)
[2017-08-03] MEDS: CIPROFLOXACIN 500 MG TAB NGT ×2 (06:23→16:54)
[2017-08-03] MEDS: morphine LIQ (10 MG/5 ML) CUP PO ×3 (06:26→16:43)
[2017-08-03] MEDS: FUROSEMIDE 20 MG INJ IV ×2 (08:42→08:46)
[2017-08-03] MEDS: morphine (ER) 15 MG TAB PO ×2 (08:42→20:44)
[2017-08-03] MEDS: LIDOCAINE 1% (MDV) 10 ML INJ (09:45)
[2017-08-03 12:32] LABS: FLD MN% 65.8 %; FLD PMN% 34.2 %; FLD RBC 2000 /uL; FLD WBC 536 /cmm
[2017-08-03] MEDS: AL HYDROX/MG HYDROX/SIMETH 30 ML CUP PO (12:36)
[2017-08-03 13:25] LABS: FLD CLARITY HAZY; FLD COLOR YELLOW
[2017-08-03 13:25] LABS: FLD TYPE THORACENTHESIS
[2017-08-03 13:36] LABS: FLUID LD 237 U/L; FLUID TYPE THORACENTESIS FLUID
[2017-08-03 13:37] LABS: FLUID GLUCOSE 121 mg/dl; FLUID TOTAL PROTEIN 2.5 g/dl; FLUID TYPE THORACENTESIS FLUID
[2017-08-03] MEDS: SOD FERRIC GLUC COMPLX 125 MG in SOD CHLORIDE 0.9% 100 ML IVPB (16:54)
[2017-08-03] MEDS: APIXABAN 5 MG TABLET PO (20:42)
[2017-08-04] MEDS: CIPROFLOXACIN 500 MG TAB NGT (06:00)
[2017-08-04] MEDS: AMPICILLIN 1 GM/NS (PMX) 50 ML IVPB ×2 (06:00)
[2017-08-04] MEDS: morphine LIQ (10 MG/5 ML) CUP PO ×2 (06:10)
[2017-08-04] MEDS: morphine (ER) 15 MG TAB PO (08:32)
[2017-08-04] MEDS: APIXABAN 5 MG TABLET PO (08:32)
[2017-08-04] MEDS: AL HYDROX/MG HYDROX/SIMETH 30 ML CUP PO (08:40)
== END 2017-08-04 13:50 | DRG 853 ==
LOC: MS2 06-30 12:20 → E/R 01:44 → SDS 14:55 → MS4 18:50 → ICU 22:05
PROC: 0D1N0Z4 Bypass Sigmoid Colon to Cutaneous, Open Approach (ICD-10-PCS; principal; 2017-06-27 14:37)
PROC: 0DBN0ZX Excision of Sigmoid Colon, Open Approach, Diagnostic (ICD-10-PCS; 2017-06-27 14:37)
PROC: 0TBB0ZX Excision of Bladder, Open Approach, Diagnostic (ICD-10-PCS; 2017-06-27 14:37)
PROC: 0DBP0ZX Excision of Rectum, Open Approach, Diagnostic (ICD-10-PCS; 2017-06-27 14:37)
PROC: 0DBV0ZZ Excision of Mesentery, Open Approach (ICD-10-PCS; 2017-06-27 14:37)
PROC: 0WJG4ZZ Inspection of Peritoneal Cavity, Percutaneous Endoscopic Approach (ICD-10-PCS; 2017-06-27 14:37)
PROC: 0DU Gastrointestinal System, Supplement (ICD-10-PCS; 2017-06-27 14:37)
PROC: 0DJD8ZZ Inspection of Lower Intestinal Tract, Via Natural or Artificial Opening Endoscopic (ICD-10-PCS; 2017-06-27 14:37)
PROC: 5A1945Z Respiratory Ventilation, 24-96 Consecutive Hours (ICD-10-PCS; 2017-06-27 14:37)
PROC: 30233N1 Transfusion of Nonautologous Red Blood Cells into Peripheral Vein, Percutaneous Approach (ICD-10-PCS; 2017-06-27 14:37)
PROC: 30233K1 Transfusion of Nonautologous Frozen Plasma into Peripheral Vein, Percutaneous Approach (ICD-10-PCS; 2017-06-27 14:37)
PROC: 0W9B3ZZ Drainage of Left Pleural Cavity, Percutaneous Approach (ICD-10-PCS; 2017-06-27 14:37)
PROC: 0W9J30Z Drainage of Pelvic Cavity with Drainage Device, Percutaneous Approach (ICD-10-PCS; 2017-06-27 14:37)
PROC: 0F9130Z Drainage of Right Lobe Liver with Drainage Device, Percutaneous Approach (ICD-10-PCS; 2017-06-27 14:37)
PROC: 0WPJ30Z Removal of Drainage Device from Pelvic Cavity, Percutaneous Approach (ICD-10-PCS; 2017-06-27 14:37)
PROC: 0W9J30Z Drainage of Pelvic Cavity with Drainage Device, Percutaneous Approach (ICD-10-PCS; 2017-06-27 14:37)
PROC: 06HT33Z Insertion of Infusion Device into Right Foot Vein, Percutaneous Approach (ICD-10-PCS; 2017-06-27 14:37)
DX: A41.9 Sepsis, unspecified organism (principal); R65.21 Severe sepsis with septic shock; K65.9 Peritonitis, unspecified; K63.1 Perforation of intestine (nontraumatic); N17.0 Acute kidney failure with tubular necrosis; J96.01 Acute respiratory failure with hypoxia; K65.1 Peritoneal abscess; K75.0 Abscess of liver; E87.2 Acidosis; C18.9 Malignant neoplasm of colon, unspecified; I82.421 Acute embolism and thrombosis of right iliac vein; N39.0 Urinary tract infection, site not specified; C20 Malignant neoplasm of rectum; J90 Pleural effusion, not elsewhere classified; B96.5 Pseudomonas (aeruginosa) (mallei) (pseudomallei) as the cause of diseases classified elsewhere; D50.9 Iron deficiency anemia, unspecified; D63.8 Anemia in other chronic diseases classified elsewhere; E87.6 Hypokalemia; F10.21 Alcohol dependence, in remission; K62.4 Stenosis of anus and rectum; N32.3 Diverticulum of bladder; R73.9 Hyperglycemia, unspecified; Z53.31 Laparoscopic surgical procedure converted to open procedure
CPT/HCPCS: 36430; 36600; 71045; 71260; 72196; 74176; 74177; 76775; 76942; 77012; 80048; 80053; 80202; 81001; 81003; 82378; 82550; 82570; 82607; 82728; 82803; 82945; 82962; 83036; 83540; 83605; 83615; 83690; 83735; 83986; 84100; 84132; 84157; 84300; 84560; 85025; 85610; 85651; 85730; 86140; 86850; 86900; 86901; 86920; 87040; 87070; 87075; 87081; 87086; 88104; 88305; 88307; 88331; 88341; 88342; 89051; 89190; 93005; 93970; 94002; 94003; 94770; 96372; 96374; 96375; 96376; 97110; 97116; 97162; 97530; 99285-25

== ENCOUNTER → 2018-02-28 | Outpatient (CLI) | payer MEDICARE | END | disposition home or self-care (01) | LOC: EKG 09:59 | DX: C18.9 Malignant neoplasm of colon, unspecified (principal) | CPT/HCPCS: 71046; 93005 ==

== ENCOUNTER 2018-07-28 12:49 | Inpatient (IN) | payer MEDICARE ==
[2018-07-28 14:41] LABS: ADD MAN DIFF? NO
[2018-07-28 14:42] LABS: ABNORMAL IP MESSAGE 1; BASOPHILS % 0.3 % (0.0-2.0); EOSINOPHILS # 0.1 10^3/ul (0.0-0.5); EOSINOPHILS % 0.9 % (0.0-7.0); HEMATOCRIT 43.8 % (42.0-52.0); HEMOGLOBIN 15.1 g/dl (14.0-18.0); LYMPHOCYTES # 0.5 10^3/ul (0.8-2.9); LYMPHOCYTES % 8.9 % (15.0-51.0); MEAN CORPUSCULAR HEMOGLOBIN 29.7 pg (29.0-33.0); MEAN CORPUSCULAR HGB CONC 34.5 g/dl (32.0-37.0); MEAN CORPUSCULAR VOLUME 86.1 fl (82.0-101.0); MEAN PLATELET VOLUME 8.8 fl (7.4-10.4); MONOCYTES % 17.5 % (0.0-11.0); NEUTROPHIL # 4.1 10^3/ul (1.6-7.5); NEUTROPHILS % 71.9 % (39.0-77.0); PLATELET COUNT 264 10^3/UL (140-415); POSITIVE DIFF @See below; RED BLOOD COUNT 5.09 10^6/ul (4.70-6.10); RED CELL DISTRIBUTION WIDTH 15.5 % (11.5-14.5)
[2018-07-28 14:42] LABS: WHITE BLOOD COUNT 5.7 10^3/ul (4.8-10.8)
[2018-07-28] MEDS: SOD CHLORIDE 0.9% IV (14:43)
[2018-07-28 15:06] LABS: ALANINE AMINOTRANSFERASE 20 IU/L (13-69); ALBUMIN 4.9 g/dl (3.3-4.9); ALBUMIN/GLOBULIN RATIO 1.19; ALKALINE PHOSPHATASE 163 IU/L (42-121); ANION GAP 18 (5-13); ASPARTATE AMINO TRANSFERASE 29 IU/L (15-46); BILIRUBIN,INDIRECT 0.5 mg/dl (0-1.1); BILIRUBIN,TOTAL 0.5 mg/dl (0.2-1.3); BLOOD UREA NITROGEN 104 mg/dl (7-20); CALCIUM 9.9 mg/dl (8.4-10.2); CARBON DIOXIDE 22 mmol/L (21-31); CHLORIDE 93 mmol/L (97-110); CREATININE 3.73 mg/dl (0.61-1.24); Estimated GFR 16 mL/min (>60); GLUCOSE 128 mg/dl (70-220); POTASSIUM 4.3 mmol/L (3.5-5.1); SODIUM 133 mmol/L (135-144)
[2018-07-28 16:25] LABS: TROPONIN-I < 0.012 ng/ml (0.000-0.120)
[2018-07-28 16:27] LABS: B-TYPE NATRIURETIC PEPTIDE 302 PG/ML (0-125)
[2018-07-28] MEDS ORDERED: NACL 0.9% 3 ML SYG IV (16:30)
[2018-07-28] MEDS ORDERED: hydrALAzine 20 MG INJ IV (16:30)
[2018-07-28] MEDS ORDERED: MAGNESIUM HYDROXIDE 30ML CUP PO (16:30)
[2018-07-28] MEDS ORDERED: ALBUTEROL/IPRATROPIUM (NEB) 3 ML AMP HHN (16:30)
[2018-07-28] MEDS ORDERED: DOCUSATE SODIUM 100 MG CAP PO (16:30)
[2018-07-28] MEDS ORDERED: NITROGLYCERIN (SL) 0.4 MG TAB SL (16:30)
[2018-07-28] MEDS ORDERED: ACETAMINOPHEN 325 MG TAB PO (17:00)
[2018-07-28] MEDS ORDERED: ONDANSETRON 4 MG INJ IV (17:00)
[2018-07-28 17:07] LABS: LACTIC ACID 1.1 mmol/L (0.5-2.0)
[2018-07-28] MEDS: ONDANSETRON 4 MG INJ IV (17:08)
[2018-07-28] MEDS: LEVOFLOXACIN 750MG/D5W (PMX) 150 ML IVPB (17:36)
[2018-07-28 20:34] LABS: LACTIC ACID 0.8 mmol/L (0.5-2.0)
[2018-07-28] MEDS: traZODone 50 MG TAB PO (20:51)
[2018-07-28] MEDS: SOD CHLORIDE 0.9% 1,000 ML IV (20:51)
[2018-07-28] MEDS: FAMOTIDINE 20 MG INJ IV (20:51)
[2018-07-28] MEDS: morphine 2 MG INJ IV (20:52)
[2018-07-28] MEDS ORDERED: APIXABAN 5 MG TABLET PO (21:00)
[2018-07-28] MEDS: TAMSULOSIN (SR) 0.4 MG CAP PO (21:50)
[2018-07-28] MEDS: LORAZEPAM 2 MG INJ IV (23:04)
[2018-07-29] MEDS: SOD CHLORIDE 0.9% 1,000 ML IV ×3 (01:32→20:36)
[2018-07-29] MEDS: ONDANSETRON 4 MG INJ IV ×4 (01:56→20:55)
[2018-07-29 06:18] LABS: ADD MAN DIFF? NO
[2018-07-29 06:28] LABS: ABNORMAL IP MESSAGE 1; BASOPHILS % 0.4 % (0.0-2.0); EOSINOPHILS # 0.1 10^3/ul (0.0-0.5); EOSINOPHILS % 2.5 % (0.0-7.0); HEMATOCRIT 35.6 % (42.0-52.0); HEMOGLOBIN 12.1 g/dl (14.0-18.0); LYMPHOCYTES # 0.4 10^3/ul (0.8-2.9); LYMPHOCYTES % 8.4 % (15.0-51.0); MEAN CORPUSCULAR HEMOGLOBIN 29.3 pg (29.0-33.0); MEAN CORPUSCULAR VOLUME 86.2 fl (82.0-101.0); MEAN PLATELET VOLUME 8.8 fl (7.4-10.4); MONOCYTES % 20.1 % (0.0-11.0); NEUTROPHIL # 3.3 10^3/ul (1.6-7.5); NEUTROPHILS % 67.8 % (39.0-77.0); PLATELET COUNT 198 10^3/UL (140-415); POSITIVE DIFF @See below; RED BLOOD COUNT 4.13 10^6/ul (4.70-6.10); RED CELL DISTRIBUTION WIDTH 15.5 % (11.5-14.5)
[2018-07-29 06:28] LABS: WHITE BLOOD COUNT 4.9 10^3/ul (4.8-10.8)
[2018-07-29 06:47] LABS: ANION GAP 13 (5-13); BLOOD UREA NITROGEN 92 mg/dl (7-20); CALCIUM 8.6 mg/dl (8.4-10.2); CARBON DIOXIDE 24 mmol/L (21-31); CHLORIDE 96 mmol/L (97-110); CREATININE 2.55 mg/dl (0.61-1.24); Estimated GFR 25 mL/min (>60); GLUCOSE 110 mg/dl (70-220); MAGNESIUM 2.1 mg/dl (1.7-2.5); PHOSPHORUS 3.6 mg/dl (2.5-4.9); POTASSIUM 3.8 mmol/L (3.5-5.1); SODIUM 133 mmol/L (135-144)
[2018-07-29 07:40] LABS: CHOLESTEROL 114 mg/dl (100-200)
[2018-07-29 07:40] LABS: CHOL/HDL RATIO 3.2 RATIO; HDL CHOLESTEROL 35 mg/dl (30-78); LDL CHOLESTEROL,CALCULATED 53 mg/dl; TRIGLYCERIDES 129 mg/dl (0-149)
[2018-07-29 07:44] LABS: HEMOGLOBIN A1C 5.3 % (0-5.9)
[2018-07-29] MEDS: FAMOTIDINE 20 MG INJ IV (08:34)
[2018-07-29] MEDS: morphine 2 MG INJ IV (08:37)
[2018-07-29 10:34] LABS: ADD UMIC YES; UR ASCORBIC ACID NEGATIVE (NEGATIVE); UR BILIRUBIN (Dip) NEGATIVE (NEGATIVE); UR BLOOD (Dip) 2+ mg/dL (NEGATIVE); UR CLARITY CLEAR (CLEAR); UR COLOR YELLOW (YELLOW); UR GLUCOSE (Dip) NEGATIVE (NEGATIVE); UR KETONES (Dip) NEGATIVE (NEGATIVE); UR LEUKOCYTE ESTERASE (Dip) NEGATIVE Leu/ul (NEGATIVE); UR NITRITE (Dip) NEGATIVE (NEGATIVE); UR RBC 2 /HPF (0-5); UR SPECIFIC GRAVITY (Dip) 1.016 (1.003-1.030); UR TOTAL PROTEIN (Dip) NEGATIVE (NEGATIVE); UR UROBILINOGEN (Dip) NEGATIVE (NEGATIVE); UR WBC 3 /HPF (0-5)
[2018-07-29 10:51] LABS: SODIUM,URINE RANDOM < 13 mmol/L (30-90)
[2018-07-29] MEDS ORDERED: morphine (ER) 30 MG TAB PO (12:00)
[2018-07-29 13:36] LABS: FREE T4 (FREE THYROXINE) 1.76 ng/dl (0.78-2.44)
[2018-07-29] MEDS: morphine (ER) 30 MG TAB PO ×2 (14:34→20:55)
[2018-07-29] MEDS: TAMSULOSIN (SR) 0.4 MG CAP PO (20:54)
[2018-07-29] MEDS: traZODone 50 MG TAB PO (20:54)
[2018-07-29] MEDS ORDERED: TAMSULOSIN (SR) 0.4 MG CAP PO (21:00)
[2018-07-30] MEDS: SOD CHLORIDE 0.9% 1,000 ML IV ×3 (04:41→20:08)
[2018-07-30] MEDS: HYDROCODONE/APAP (5/325) TAB PO ×2 (05:37→21:32)
[2018-07-30 06:07] LABS: ADD MAN DIFF? NO
[2018-07-30 06:15] LABS: ABNORMAL IP MESSAGE 1; BASOPHILS % 0.5 % (0.0-2.0); EOSINOPHILS # 0.1 10^3/ul (0.0-0.5); EOSINOPHILS % 3.1 % (0.0-7.0); HEMATOCRIT 35.3 % (42.0-52.0); HEMOGLOBIN 12.1 g/dl (14.0-18.0); LYMPHOCYTES # 0.5 10^3/ul (0.8-2.9); LYMPHOCYTES % 11.9 % (15.0-51.0); MEAN CORPUSCULAR HEMOGLOBIN 29.7 pg (29.0-33.0); MEAN CORPUSCULAR HGB CONC 34.3 g/dl (32.0-37.0); MEAN CORPUSCULAR VOLUME 86.5 fl (82.0-101.0); MONOCYTE # 0.7 10^3/ul (0.3-0.9); MONOCYTES % 18.3 % (0.0-11.0); NEUTROPHIL # 2.5 10^3/ul (1.6-7.5); NEUTROPHILS % 65.4 % (39.0-77.0); PLATELET COUNT 188 10^3/UL (140-415); POSITIVE DIFF @See below; RED BLOOD COUNT 4.08 10^6/ul (4.70-6.10); RED CELL DISTRIBUTION WIDTH 15.3 % (11.5-14.5)
[2018-07-30 06:15] LABS: WHITE BLOOD COUNT 3.9 10^3/ul (4.8-10.8)
[2018-07-30 06:40] LABS: ALANINE AMINOTRANSFERASE 18 IU/L (13-69); ALBUMIN 3.5 g/dl (3.3-4.9); ALBUMIN/GLOBULIN RATIO 1.09; ALKALINE PHOSPHATASE 116 IU/L (42-121); ANION GAP 12 (5-13); ASPARTATE AMINO TRANSFERASE 19 IU/L (15-46); BILIRUBIN,INDIRECT 0.4 mg/dl (0-1.1); BILIRUBIN,TOTAL 0.4 mg/dl (0.2-1.3); BLOOD UREA NITROGEN 53 mg/dl (7-20); CALCIUM 8.4 mg/dl (8.4-10.2); CARBON DIOXIDE 22 mmol/L (21-31); CHLORIDE 104 mmol/L (97-110); CREATININE 1.66 mg/dl (0.61-1.24); Estimated GFR 41 mL/min (>60); GLUCOSE 110 mg/dl (70-220); POTASSIUM 3.6 mmol/L (3.5-5.1); SODIUM 138 mmol/L (135-144); TOTAL PROTEIN 6.7 g/dl (6.1-8.1)
[2018-07-30 07:13] LABS: PHOSPHORUS 3.1 mg/dl (2.5-4.9)
[2018-07-30 08:13] LABS: ERYTHROCYTE SEDIMENTATION RATE 26 mm/Hr (0-20)
[2018-07-30] MEDS: FAMOTIDINE 20 MG INJ IV (08:49)
[2018-07-30] MEDS: morphine (ER) 30 MG TAB PO ×2 (08:49→20:05)
[2018-07-30] MEDS: ONDANSETRON 4 MG INJ IV (12:39)
[2018-07-30] MEDS: CALCIUM CARBONATE 500 MG CHEW TAB PO ×2 (15:45→23:19)
[2018-07-30] MEDS: LEVOFLOXACIN 500MG/D5W (PMX) 100 ML IVPB (16:37)
[2018-07-30] MEDS: traZODone 50 MG TAB PO (20:06)
[2018-07-30] MEDS: TAMSULOSIN (SR) 0.4 MG CAP PO (20:06)
[2018-07-31] MEDS: SOD CHLORIDE 0.9% 1,000 ML IV (02:14)
[2018-07-31] MEDS: CALCIUM CARBONATE 500 MG CHEW TAB PO (02:31)
[2018-07-31] MEDS: HYDROCODONE/APAP (5/325) TAB PO ×2 (04:09→11:22)
[2018-07-31 07:48] LABS: ADD MAN DIFF? NO
[2018-07-31 07:57] LABS: WHITE BLOOD COUNT 4.4 10^3/ul (4.8-10.8)
[2018-07-31 07:57] LABS: ABNORMAL IP MESSAGE 1; BASOPHILS % 0.2 % (0.0-2.0); EOSINOPHILS # 0.1 10^3/ul (0.0-0.5); EOSINOPHILS % 2.5 % (0.0-7.0); HEMATOCRIT 28.8 % (42.0-52.0); HEMOGLOBIN 9.4 g/dl (14.0-18.0); LYMPHOCYTES # 0.6 10^3/ul (0.8-2.9); LYMPHOCYTES % 12.7 % (15.0-51.0); MEAN CORPUSCULAR HEMOGLOBIN 29.5 pg (29.0-33.0); MEAN CORPUSCULAR HGB CONC 32.6 g/dl (32.0-37.0); MEAN CORPUSCULAR VOLUME 90.3 fl (82.0-101.0); MEAN PLATELET VOLUME 8.6 fl (7.4-10.4); MONOCYTE # 0.8 10^3/ul (0.3-0.9); NEUTROPHIL # 2.8 10^3/ul (1.6-7.5); PLATELET COUNT 171 10^3/UL (140-415); POSITIVE DIFF @See below; RED BLOOD COUNT 3.19 10^6/ul (4.70-6.10); RED CELL DISTRIBUTION WIDTH 15.2 % (11.5-14.5)
[2018-07-31 08:20] LABS: ANION GAP 8 (5-13); BLOOD UREA NITROGEN 22 mg/dl (7-20); CALCIUM 7.2 mg/dl (8.4-10.2); CARBON DIOXIDE 20 mmol/L (21-31); CHLORIDE 116 mmol/L (97-110); CREATININE 1.02 mg/dl (0.61-1.24); Estimated GFR > 60 mL/min (>60); GLUCOSE 96 mg/dl (70-220); POTASSIUM 3.5 mmol/L (3.5-5.1); SODIUM 144 mmol/L (135-144)
[2018-07-31] MEDS: morphine (ER) 30 MG TAB PO ×2 (08:25→20:20)
[2018-07-31] MEDS: FAMOTIDINE 20 MG INJ IV (08:26)
[2018-07-31] MEDS: ACETAMINOPHEN 325 MG TAB PO (12:07)
[2018-07-31] MEDS: APIXABAN 5 MG TABLET PO ×2 (12:14→20:19)
[2018-07-31 17:18] LABS: ADD MAN DIFF? NO
[2018-07-31 17:22] LABS: WHITE BLOOD COUNT 4.1 10^3/ul (4.8-10.8)
[2018-07-31 17:22] LABS: ABNORMAL IP MESSAGE 1; BASOPHILS % 0.2 % (0.0-2.0); EOSINOPHILS # 0.1 10^3/ul (0.0-0.5); EOSINOPHILS % 1.9 % (0.0-7.0); HEMATOCRIT 29.2 % (42.0-52.0); HEMOGLOBIN 9.6 g/dl (14.0-18.0); LYMPHOCYTES # 0.4 10^3/ul (0.8-2.9); LYMPHOCYTES % 9.5 % (15.0-51.0); MEAN CORPUSCULAR HGB CONC 32.9 g/dl (32.0-37.0); MEAN CORPUSCULAR VOLUME 91.3 fl (82.0-101.0); MEAN PLATELET VOLUME 8.7 fl (7.4-10.4); MONOCYTE # 0.7 10^3/ul (0.3-0.9); NEUTROPHIL # 2.8 10^3/ul (1.6-7.5); NEUTROPHILS % 68.9 % (39.0-77.0); PLATELET COUNT 157 10^3/UL (140-415); POSITIVE DIFF @See below; RED CELL DISTRIBUTION WIDTH 15.4 % (11.5-14.5)
[2018-07-31] MEDS: TAMSULOSIN (SR) 0.4 MG CAP PO (20:19)
[2018-07-31] MEDS: traZODone 50 MG TAB PO (20:19)
[2018-08-01] MEDS: LORAZEPAM 2 MG INJ IV ×2 (00:20→23:56)
[2018-08-01] MEDS: ONDANSETRON 4 MG INJ IV ×2 (00:21→10:16)
[2018-08-01 06:05] LABS: ADD MAN DIFF? NO
[2018-08-01 06:06] LABS: ABNORMAL IP MESSAGE 1; BASOPHILS % 0.4 % (0.0-2.0); EOSINOPHILS # 0.1 10^3/ul (0.0-0.5); EOSINOPHILS % 2.2 % (0.0-7.0); HEMATOCRIT 29.2 % (42.0-52.0); LYMPHOCYTES # 0.4 10^3/ul (0.8-2.9); MEAN CORPUSCULAR HEMOGLOBIN 30.1 pg (29.0-33.0); MEAN CORPUSCULAR HGB CONC 34.2 g/dl (32.0-37.0); MEAN PLATELET VOLUME 8.9 fl (7.4-10.4); MONOCYTES % 19.6 % (0.0-11.0); NEUTROPHIL # 3.3 10^3/ul (1.6-7.5); PLATELET COUNT 169 10^3/UL (140-415); POSITIVE DIFF @See below; RED BLOOD COUNT 3.32 10^6/ul (4.70-6.10); RED CELL DISTRIBUTION WIDTH 15.7 % (11.5-14.5)
[2018-08-01 06:06] LABS: WHITE BLOOD COUNT 4.9 10^3/ul (4.8-10.8)
[2018-08-01 06:34] LABS: ANION GAP 6 (5-13); BLOOD UREA NITROGEN 19 mg/dl (7-20); CALCIUM 8.1 mg/dl (8.4-10.2); CARBON DIOXIDE 21 mmol/L (21-31); CHLORIDE 116 mmol/L (97-110); CREATININE 1.08 mg/dl (0.61-1.24); Estimated GFR > 60 mL/min (>60); GLUCOSE 113 mg/dl (70-220); POTASSIUM 3.9 mmol/L (3.5-5.1); SODIUM 143 mmol/L (135-144)
[2018-08-01] MEDS: morphine (ER) 30 MG TAB PO ×2 (08:55→22:01)
[2018-08-01] MEDS: APIXABAN 5 MG TABLET PO ×2 (08:55→20:44)
[2018-08-01] MEDS: FAMOTIDINE 20 MG INJ IV (08:55)
[2018-08-01] MEDS: LEVOFLOXACIN 500MG/D5W (PMX) 100 ML IVPB (17:06)
[2018-08-01] MEDS: traZODone 50 MG TAB PO (22:00)
[2018-08-01] MEDS: TAMSULOSIN (SR) 0.4 MG CAP PO (22:00)
[2018-08-02] MEDS: HYDROCODONE/APAP (5/325) TAB PO (05:57)
[2018-08-02 06:50] LABS: ADD MAN DIFF? NO
[2018-08-02 06:57] LABS: WHITE BLOOD COUNT 5.7 10^3/ul (4.8-10.8)
[2018-08-02 06:57] LABS: ABNORMAL IP MESSAGE 1; BASOPHILS % 0.5 % (0.0-2.0); EOSINOPHILS # 0.2 10^3/ul (0.0-0.5); HEMATOCRIT 29.5 % (42.0-52.0); HEMOGLOBIN 9.8 g/dl (14.0-18.0); LYMPHOCYTES # 0.5 10^3/ul (0.8-2.9); LYMPHOCYTES % 9.5 % (15.0-51.0); MEAN CORPUSCULAR HEMOGLOBIN 30.1 pg (29.0-33.0); MEAN CORPUSCULAR HGB CONC 33.2 g/dl (32.0-37.0); MEAN CORPUSCULAR VOLUME 90.5 fl (82.0-101.0); MEAN PLATELET VOLUME 8.8 fl (7.4-10.4); MONOCYTES % 17.6 % (0.0-11.0); NEUTROPHIL # 3.9 10^3/ul (1.6-7.5); NEUTROPHILS % 68.2 % (39.0-77.0); PLATELET COUNT 165 10^3/UL (140-415); POSITIVE DIFF @See below; RED BLOOD COUNT 3.26 10^6/ul (4.70-6.10); RED CELL DISTRIBUTION WIDTH 15.7 % (11.5-14.5)
[2018-08-02 07:30] LABS: ANION GAP 8 (5-13); BLOOD UREA NITROGEN 16 mg/dl (7-20); CALCIUM 8.1 mg/dl (8.4-10.2); CARBON DIOXIDE 24 mmol/L (21-31); CHLORIDE 109 mmol/L (97-110); CREATININE 0.94 mg/dl (0.61-1.24); Estimated GFR > 60 mL/min (>60); GLUCOSE 92 mg/dl (70-220); SODIUM 141 mmol/L (135-144)
[2018-08-02] MEDS: FAMOTIDINE 20 MG INJ IV (09:34)
[2018-08-02] MEDS: APIXABAN 5 MG TABLET PO (09:34)
[2018-08-02] MEDS: morphine (ER) 30 MG TAB PO (09:34)
== END 2018-08-02 13:24 | disposition home or self-care (01) | DRG 683 ==
LOC: E/R 12:49 → 6WM 16:31 → TEL 20:00
DX: N17.9 Acute kidney failure, unspecified (principal); E44.0 Moderate protein-calorie malnutrition; C78.7 Secondary malignant neoplasm of liver and intrahepatic bile duct; C18.9 Malignant neoplasm of colon, unspecified; E87.0 Hyperosmolality and hypernatremia; Z68.20 Body mass index [BMI] 20.0-20.9, adult; Z88.0 Allergy status to penicillin; E86.0 Dehydration; D64.9 Anemia, unspecified; N20.0 Calculus of kidney; Z86.718 Personal history of other venous thrombosis and embolism; Z92.3 Personal history of irradiation; Z79.01 Long term (current) use of anticoagulants
CPT/HCPCS: 36415; 71045; 71250; 76775; 78582; 80048; 80053; 80061; 81001; 81003; 83036; 83605; 83735; 83880; 84100; 84155; 84300; 84439; 84443; 84484; 85025; 85651; 93005; 97116; 97162; 97165; 97530; 99285-25

== ENCOUNTER 2018-09-04 14:04 | Emergency (ER) | payer MEDICARE | END 2018-09-04 16:33 | disposition home or self-care (01) | LOC: FTE 14:04 | DX: J02.9 Acute pharyngitis, unspecified (principal); R09.89 Other specified symptoms and signs involving the circulatory and respiratory systems | CPT/HCPCS: 71045; 99283-25 ==